=== PATIENT | male | born 1965 | race African-American/Black ===

== ENCOUNTER 2024-09-20 09:45 | Emergency (ER) | payer OTHER ==
[2024-09-20 10:03] VITALS: TEMP 99.3
--- NOTE | 2024-09-20 10:56 | XR ---
Chest, 2 view. CLINICAL INDICATION: Male, 59 years old with history of difficulty breathing COMPARISON: None TECHNIQUE: PA and lateral views the chest are obtained. FINDINGS: The lungs are clear and there is no consolidative or interstitial opacity. There is no pleural effusion or pneumothorax. The heart, pulmonary vasculature, mediastinum and tremaine appear normal. The osseous structures are intact. IMPRESSION: No significant abnormality seen. No acute cardiopulmonary disease. [facility], , 09/20/2024 10:54 AM
[2024-09-20 10:57] VITALS: BP 143/81
[2024-09-20 11:14] LABS: Basophils # (A) 0.03 10*3/uL (0.00-0.10); Basophils % (A) 0.3 %; Eosinophils # (A) 0.05 10*3/uL (0.04-0.35); Eosinophils % (A) 0.4 %; HCT 33.6 % (39.6-50.0); HGB 10.6 g/dL (13.0-17.0); Lymphocytes # (A) 1.87 10*3/uL (0.90-5.00); Lymphocytes % (A) 16.6 %; MCH 27.1 pg (27.0-32.0); MCHC 31.5 g/dL (32.0-37.0); MCV 85.9 fL (80.0-97.0); Mean Platelet Volume 9.2 fL (9.5-12.2); Monocytes % (A) 10.7 %; Neutrophils # (A) 8.06 10*3/uL (1.80-7.70); Neutrophils % (A) 71.7 %; Platelet Count 249 10*3/uL (140-440); RBC 3.91 10*6/uL (4.40-5.60); RDW 16.7 % (11.5-14.5); WBC 11.24 10*3/uL (4.50-10.00)
[2024-09-20 11:15] VITALS: RESP 24
[2024-09-20] MEDS: methylPREDNISolone SOD SUCCI 125 MG/2 ML VIAL IV STA (11:15)
[2024-09-20 11:29] LABS: Partial Thromboplastin Time 26.6 sec (22.0-30.0); Prothrombin Time 11.1 sec (10.0-12.5)
[2024-09-20 11:31] LABS: ALT 14 U/L (4-49); AST 18 U/L (17-59); African American GFR (CKD) >90 (>60 ml/min/1.73 sqM); Albumin 3.1 g/dL (3.5-5.0); Alkaline Phosphatase 88 U/L (38-126); Anion Gap 8 mmol/L; Blood Urea Nitrogen 15 mg/dL (9-20); Calcium 8.3 mg/dL (8.4-10.2); Carbon Dioxide 24 mmol/L (22-30); Chloride 107 mmol/L (98-107); Glucose 87 mg/dL (74-99); Magnesium 1.7 mg/dL (1.6-2.3); Non-African American GFR(CKD) 90 (>60 ml/min/1.73 sqM); Potassium 3.6 mmol/L (3.5-5.1); Sodium 139 mmol/L (137-145); Total Bilirubin 0.6 mg/dL (0.2-1.3)
[2024-09-20 11:47] LABS: Influenza A Not Detected (Not Detectd); Influenza B Not Detected (Not Detectd); RSV Not Detected (Not Detectd)
[2024-09-20] MEDS: IPRATROPIUM-ALBUTEROL 3 ML NEB INHALATION STA (12:00)
--- NOTE | 2024-09-20 12:00 | ED ---
General Adult HPI - General Chief complaint: Shortness of Breath Stated complaint: SOB Time Seen by Provider: 09/20/24 10:01 Source: patient, EMS, RN notes reviewed Mode of arrival: EMS Limitations: no limitations - History of Present Illness Initial comments: 59-year-old male presents emergency department complaint of cough and congestion. Patient states that he does have a history of COPD states he had some wheezing received updraft at [facility]. Patient was brought in via EMS. Denies any fever states he has productive cough with sputum. Patient denies any chest pain nausea vomit diarrhea constipation. He states that he usually has issues after he smokes crack. He states that he is at [facility] currently. - Related Data Previous Rx's Medication Instructions Recorded Amoxic-Pot Clav 875-125Mg 1 tab PO Q12HR #20 tab 09/20/24 [Augmentin 875-125] predniSONE 50 mg PO DAILY #5 tab 09/20/24 Allergies Allergy/AdvReac Type Severity Reaction Status Date / Time lisinopril Allergy Swelling Verified 09/20/24 10:03 Review of Systems ROS Statement: Those systems with pertinent positive or pertinent negative responses have been documented in the HPI. ROS Other: All systems not noted in ROS Statement are negative. Past Medical History Past Medical History: COPD, Hypertension Additional Past Medical History / Comment(s): Intubation in the past with trach in 2016 History of Any Multi-Drug Resistant Organisms: None Reported Additional Past Surgical History / Comment(s): Peg tube history-removed, trach- removed Past Psychological History: No Psychological Hx Reported Smoking Status: Former smoker Past Alcohol Use History: Occasional Past Drug Use History: Cocaine, Marijuana General Exam Limitations: no limitations General appearance: alert, in no apparent distress Head exam: Present: atraumatic, normocephalic, normal inspection Eye exam: Present: normal appearance, PERRL, EOMI. Absent: scleral icterus, conjunctival injection, periorbital swelling ENT exam: Present: normal exam, normal oropharynx, mucous membranes moist Neck exam: Present: normal inspection, full ROM. Absent: tenderness, meningismus, lymphadenopathy Respiratory exam: Present: wheezes. Absent: normal lung sounds bilaterally, respiratory distress, rales, rhonchi, stridor Cardiovascular Exam: Present: regular rate, normal rhythm, normal heart sounds. Absent: systolic murmur, diastolic murmur, rubs, gallop, clicks GI/Abdominal exam: Present: soft, normal bowel sounds. Absent: distended, tenderness, guarding, rebound, rigid Course Vital Signs 09/20/24 09/20/24 09/20/24 09:58 10:54 10:57 Temperature 99.3 F Pulse Rate 70 79 Respiratory 24 26 H 24 Rate Blood Pressure 136/74 143/81 O2 Sat by Pulse 95 98 Oximetry 09/20/24 11:02 Temperature Pulse Rate 78 Respiratory 24 Rate Blood Pressure O2 Sat by Pulse 95 Oximetry EKG Findings - EKG Comments: EKG Findings:: EKG performed at 10: 13 sinus rhythm with a rate of 77 AL 175 QRS 94 QT/QTc 404/436 - EKG Results: EKG: interpreted by MAHESH Medical Decision Making - Medical Decision Making Was pt. sent in by a medical professional or institution (, PA, TRACK GRINDER, urgent care, hospital, or intermediate...) When possible be specific @ -[facility] Did you speak to anyone other than the patient for history (EMS, parent, family, police, friend...)? What history was obtained from this source @ -No Did you review nursing and triage notes (agree or disagree)? Why? @ -I reviewed and agree with nursing and triage notes Were old charts reviewed (outside hosp., previous admission, EMS record, old EKG, old radiological studies, urgent care reports/EKG's, intermediate records)? Report findings @ -No old charts were reviewed Differential Diagnosis (chest pain, altered mental status, abdominal pain women, abdominal pain men, vaginal bleeding, weakness, fever, dyspnea, syncope, headache, dizziness, GI bleed, back pain, seizure, CVA, palpatations, mental health, musculoskeletal)? @ -Differential Dyspnea: Coronary syndrome, arrhythmia, tamponade, asthma, COPD, pulmonary embolism, pneumonia, pneumothorax, pulmonary effusion, anaphylaxis, diabetic ketoacidosis, flailed chest, pulmonary contusion, diaphragmatic rupture, anemia, neuromuscular, this is not meant to be an all-inclusive list. EKG interpreted by me (3pts min.). @ -As above X-rays interpreted by me (1pt min.). @ -Chest x-ray shows COPD changes no acute infiltrate CT interpreted by me (1pt min.). @ -None done U/S interpreted by me (1pt. min.). @ -None done What testing was considered but not performed or refused? (CT, X-rays, U/S, labs)? Why? @ -None What meds were considered but not given or refused? Why? @ -None Did you discuss the management of the patient with other professionals (professionals i.e. , PA, TRACK GRINDER, lab, RT, psych nurse, social staff worker, rn disease management, teacher, security officer, case reviewer)? Give summary @ -No Was smoking cessation discussed for >3mins.? @ -No Was critical care preformed (if so, how long)? @ -No Were there social determinants of health that impacted care today? How? (Homelessness, low income, unemployed, alcoholism, drug addiction, transportation, low edu. Level, literacy, decrease access to med. care, penitentiary, rehab)? @ -No Was there de-escalation of care discussed even if they declined (Discuss DNR or withdrawal of care, Hospice)? DNR status @ -No What co-morbidities impacted this encounter? (DM, HTN, Smoking, COPD, CAD, Cancer, CVA, ARF, Chemo, Hep., AIDS, mental health diagnosis, sleep apnea, morbid obesity)? @ -COPD, drug abuse Was patient admitted / discharged? Hospital course, mention meds given and rout e, prescriptions, significant lab abnormalities, going to OR and other pertinent info. @Discharge patient presented for cough congestion patient does have mild COPD exacerbation he is not hypoxic and is no distress. Patient given Solu-Medrol and DuoNeb treatment will be discharged on antibiotics steroids continuation of medication return for as discussed. Undiagnosed new problem with uncertain prognosis? @ -No Drug Therapy requiring intensive monitoring for toxicity (Heparin, Nitro, Insulin, Cardizem)? @ -No Were any procedures done? @ -No Diagnosis/symptom? @ -Mild COPD exacerbation, acute tracheobronchitis Acute, or Chronic, or Acute on Chronic? @ -Acute Uncomplicated (without systemic symptoms) or Complicated (systemic symptoms)? @ -Complicated Side effects of treatment? @ -No Exacerbation, Progression, or Severe Exacerbation? @ -No Poses a threat to life or bodily function? How? (Chest pain, USA, CT, pneumonia, PE, COPD, DKA, ARF, appy, cholecystitis, CVA, Diverticulitis, Homicidal, Suicidal, threat to staff... and all critical care pts) @ -Yes COPD risk to pulmonary function - Lab Data Result diagrams: 09/20/24 11:04 09/20/24 11:04 Lab Results 09/20/24 09/20/24 09/20/24 Range/Units 11:04 11:04 11:04 WBC 11.24 H (4.50-10.00) 10*3/uL RBC 3.91 L (4.40-5.60) 10*6/uL Hgb 10.6 L (13.0-17.0) g/dL Hct 33.6 L (39.6-50.0) % MCV 85.9 (80.0-97.0) fL MCH 27.1 (27.0-32.0) pg MCHC 31.5 L (32.0-37.0) g/dL Plt Count 249 (140-440) 10*3/uL MPV 9.2 L (9.5-12.2) fL Immature Gran % (Auto) 0.3 % Neutrophils % 71.7 % Lymphocytes % 16.6 % Monocytes % 10.7 % Eosinophils % 0.4 % Basophils % 0.3 % Immature Gran # 0.03 (0.00-0.04) 10*3/uL Neutrophils # 8.06 H (1.80-7.70) 10*3/uL Lymphocytes # 1.87 (0.90-5.00) 10*3/uL Monocytes # 1.20 H (0.20-1.00) 10*3/uL Eosinophils # 0.05 (0.04-0.35) 10*3/uL Basophils # 0.03 (0.00-0.10) 10*3/uL PT 11.1 (10.0-12.5) sec INR 1.0 (<1.2) APTT 26.6 (22.0-30.0) sec Sodium 139 (137-145) mmol/L Potassium 3.6 (3.5-5.1) mmol/L Chloride 107 (98-107) mmol/L Carbon Dioxide 24 (22-30) mmol/L Anion Gap 8 mmol/L BUN 15 (9-20) mg/dL Creatinine 0.92 (0.66-1.25) mg/dL Est GFR (CKD-EPI)AfAm >90 (>60 ml/min/1.73 sqM) Est GFR (CKD-EPI)NonAf 90 (>60 ml/min/1.73 sqM) Glucose 87 (74-99) mg/dL Plasma Lactic Acid Brandon (0.7-2.0) mmol/L Calcium 8.3 L (8.4-10.2) mg/dL Magnesium 1.7 (1.6-2.3) mg/dL Total Bilirubin 0.6 (0.2-1.3) mg/dL AST 18 (17-59) U/L ALT 14 (4-49) U/L Alkaline Phosphatase 88 (38-126) U/L Troponin I (0.000-0.034) ng/mL Total Protein 6.0 L (6.3-8.2) g/dL Albumin 3.1 L (3.5-5.0) g/dL Influenza Type A (PCR) (Not Detectd) Influenza Type B (PCR) (Not Detectd) RSV (PCR) (Not Detectd) SARS-CoV-2 (PCR) (Not Detectd) 09/20/24 09/20/24 09/20/24 Range/Units 11:04 11:04 11:04 WBC (4.50-10.00) 10*3/uL RBC (4.40-5.60) 10*6/uL Hgb (13.0-17.0) g/dL Hct (39.6-50.0) % MCV (80.0-97.0) fL MCH (27.0-32.0) pg MCHC (32.0-37.0) g/dL Plt Count (140-440) 10*3/uL MPV (9.5-12.2) fL Immature Gran % (Auto) % Neutrophils % % Lymphocytes % % Monocytes % % Eosinophils % % Basophils % % Immature Gran # (0.00-0.04) 10*3/uL Neutrophils # (1.80-7.70) 10*3/uL Lymphocytes # (0.90-5.00) 10*3/uL Monocytes # (0.20-1.00) 10*3/uL Eosinophils # (0.04-0.35) 10*3/uL Basophils # (0.00-0.10) 10*3/uL PT (10.0-12.5) sec INR (<1.2) APTT (22.0-30.0) sec Sodium (137-145) mmol/L Potassium (3.5-5.1) mmol/L Chloride (98-107) mmol/L Carbon Dioxide (22-30) mmol/L Anion Gap mmol/L BUN (9-20) mg/dL Creatinine (0.66-1.25) mg/dL Est GFR (CKD-EPI)AfAm (>60 ml/min/1.73 sqM) Est GFR (CKD-EPI)NonAf (>60 ml/min/1.73 sqM) Glucose (74-99) mg/dL Plasma Lactic Acid Brandon 1.1 (0.7-2.0) mmol/L Calcium (8.4-10.2) mg/dL Magnesium (1.6-2.3) mg/dL Total Bilirubin (0.2-1.3) mg/dL AST (17-59) U/L ALT (4-49) U/L Alkaline Phosphatase (38-126) U/L Troponin I 0.014 (0.000-0.034) ng/mL Total Protein (6.3-8.2) g/dL Albumin (3.5-5.0) g/dL Influenza Type A (PCR) Not Detected (Not Detectd) Influenza Type B (PCR) Not Detected (Not Detectd) RSV (PCR) Not Detected (Not Detectd) SARS-CoV-2 (PCR) Not Detected (Not Detectd) Disposition Clinical Impression: COPD exacerbation, Acute tracheobronchitis Disposition: HOME SELF-CARE Condition: Stable Instructions (If sedation given, give patient instructions): COPD (Chronic Obstructive Pulmonary Disease) (ED) Additional Instructions: Please return to the Emergency Department if symptoms worsen or any other concerns. Prescriptions: Amoxic-Pot Clav 875-125Mg [Augmentin 875-125] 1 tab PO Q12HR #20 tab predniSONE 50 mg PO DAILY #5 tab Is patient prescribed a controlled substance at d/c from ED?: No Referrals: Nonstaff,Physician [Primary Care Provider] - 1-2 days Time of Disposition: 11:59
[2024-09-20 12:20] VITALS: PULSE 88
== END 2024-09-20 13:32 | disposition home or self-care (01) ==
LOC: EC 09:45
DX: J44.1 Chronic obstructive pulmonary disease with (acute) exacerbation (principal); J20.9 Acute bronchitis, unspecified; F19.10 Other psychoactive substance abuse, uncomplicated; Z88.8 Allergy status to other drugs, medicaments and biological substances; Z87.891 Personal history of nicotine dependence
CPT/HCPCS: 36415; 94640; 93005; 80053; 83605; 83735; 84484; 85025; 85610; 85730; 87636; 71046; 99285; 96374; J2919

== ENCOUNTER 2024-09-22 08:11 | Emergency (ER) | payer OTHER ==
[2024-09-22 08:45] VITALS: TEMP 98
--- NOTE | 2024-09-22 08:52 | ED ---
SOB HPI - General Chief Complaint: Shortness of Breath Stated Complaint: COPD Time Seen by Provider: 09/22/24 08:51 Source: patient, EMS, RN notes reviewed Mode of arrival: EMS Limitations: no limitations - History of Present Illness Initial Comments: 59-year-old male with a past medical history significant of COPD presenting to the ER via EMS for evaluation of shortness of breath. Patient reports he is currently residing at [facility] for cocaine abuse. Patient states since 09 13 24 he has been having increasing dyspnea upon exertion. Patient was seen and evaluated here 2 days prior and received IV Solu-Medrol along with nebulized DuoNeb. Patient was ultimately discharged on prednisone and Augmentin. He reports he has been taking these as prescribed. Patient states for the past 2 days while ambulating he has noticed increased shortness of breath. While taking vital signs at [facility] he notes his oxygen saturations dropping to 90% on room air. He denies home oxygen use. Patient denies peripheral edema, orthopnea, or chest pain. Patient has been using prescribed inhalers and nebulizers without improvement of symptoms. He believes his symptoms have increased due to cigarette smoke at [facility]. History of intubation with trach 2016. He denies any fevers, chills, nausea, vomiting, abdominal pain, change in bowel movements, urinary complaints. - Related Data Home Medications Medication Instructions Recorded Confirmed Albuterol Inhaler [Ventolin Hfa 1 puff INHALATION RT-QID PRN 09/26/24 09/26/24 Inhaler] Albuterol Nebulized [Ventolin 2.5 mg INHALATION RT-Q4H PRN 09/26/24 09/26/24 Nebulized] Atorvastatin [Lipitor] 40 mg PO HS 09/26/24 09/26/24 Budesonide/Formoterol Fumarate 2 puff INHALATION RT-BID 09/26/24 09/26/24 [Symbicort 160-4.5 Mcg Inhaler] Cetirizine HCl [Zyrtec] 10 mg PO DAILY 09/26/24 09/26/24 FLUoxetine HCL [PROzac] 20 mg PO DAILY 09/26/24 09/26/24 Ferrous Sulfate [Feosol] 325 mg PO DAILY 09/26/24 09/26/24 Metoprolol Succinate (ER) [Toprol 25 mg PO DAILY 09/26/24 09/26/24 Xl] Montelukast [Singulair] 10 mg PO HS 09/26/24 09/26/24 Nystatin 100,000 Unit/ml Susp 5 ml PO QID 09/26/24 09/26/24 [Mycostatin Oral Susp] Potassium Chloride [Klor-Con M20] 20 meq PO DAILY 09/26/24 09/26/24 Tiotropium 2.5 Mcg/Puff [Spiriva 2 puff INHALATION RT-DAILY 09/26/24 09/26/24 Respimat 2.5 Mcg] Topiramate [Topamax] 25 mg PO BID 09/26/24 09/26/24 amLODIPine [Norvasc] 10 mg PO DAILY 09/26/24 09/26/24 Previous Rx's Medication Instructions Recorded Amoxic-Pot Clav 875-125Mg 1 tab PO Q12HR #20 tab 09/20/24 [Augmentin 875-125] Allergies Allergy/AdvReac Type Severity Reaction Status Date / Time lisinopril Allergy Swelling Verified 09/26/24 09:33 Review of Systems ROS Statement: Those systems with pertinent positive or pertinent negative responses have been documented in the HPI. ROS Other: All systems not noted in ROS Statement are negative. Past Medical History Past Medical History: COPD, Hypertension Additional Past Medical History / Comment(s): Intubation in the past with trach in 2016 History of Any Multi-Drug Resistant Organisms: None Reported Additional Past Surgical History / Comment(s): Peg tube history-removed, trach- removed Past Psychological History: No Psychological Hx Reported Smoking Status: Former smoker Past Alcohol Use History: Occasional Past Drug Use History: Cocaine, Marijuana General Exam - General Exam Comments Initial Comments: Visual Physical Exam Vital signs reviewed General: Well-appearing, nontoxic, no acute distress. Head: Normocephalic, atraumatic Eyes: PERRLA, EOMI ENT: Airway patent Chest: Nonlabored breathing Skin: No visual rash, normal skin tone Neuro: Alert and oriented 3 Musculoskeletal: No gross abnormalities Limitations: no limitations General appearance: alert, in no apparent distress ENT exam: Present: normal exam, normal oropharynx, mucous membranes moist Respiratory exam: Present: wheezes (Expiratory throughout all lung bridges) Cardiovascular Exam: Present: regular rate, normal rhythm, normal heart sounds. Absent: systolic murmur, diastolic murmur, rubs, gallop, clicks Extremities exam: Present: normal inspection, full ROM, normal capillary refill. Absent: tenderness, pedal edema, joint swelling, calf tenderness Neurological exam: Present: alert, oriented X3, CN II-XII intact Skin exam: Present: warm, dry, intact, normal color. Absent: rash Course Vital Signs 09/22/24 09/22/24 09/22/24 08:42 11:40 11:45 Temperature 98.0 F Pulse Rate 60 67 Respiratory 22 22 28 H Rate Blood Pressure 121/72 138/86 O2 Sat by Pulse 97 96 Oximetry 09/22/24 09/22/24 09/22/24 11:47 12:00 12:22 Temperature Pulse Rate 63 56 L 61 Respiratory 17 Rate Blood Pressure 131/76 O2 Sat by Pulse 97 100 Oximetry 09/22/24 09/22/24 12:37 14:29 Temperature Pulse Rate 68 76 Respiratory 17 Rate Blood Pressure 130/77 O2 Sat by Pulse 95 Oximetry Medical Decision Making - Medical Decision Making I performed the quick note portion of this chart. Electronically signed by Libby Hernandez PA-C Was pt. sent in by a medical professional or institution (NIMA Cavazos, RULING MACHINE SET UP OPERATOR, urgent care, hospital, or [place] health care facility...) When possible be specific @ -Patient sent from [facility] for evaluation of shortness of breath Did you speak to anyone other than the patient for history (EMS, parent, family, police, friend...)? What history was obtained from this source @ -No Did you review nursing and triage notes (agree or disagree)? Why? @ -I reviewed and agree with nursing and triage notes Were old charts reviewed (outside hosp., previous admission, EMS record, old EKG, old radiological studies, urgent care reports/EKG's, [place] health care facility records)? Report findings @ -ER visit from 09-20-2024 reviewed. Patient seen for shortness of breath. Patient had negative workup. Patient received IV Solu-Medrol, and DuoNeb nebulizers. Patient ultimately discharged back to [facility] in stable condition prescribed prednisone and Augmentin. Differential Diagnosis (chest pain, altered mental status, abdominal pain women, abdominal pain men, vaginal bleeding, weakness, fever, dyspnea, syncope, headache, dizziness, GI bleed, back pain, seizure, CVA, palpatations, mental health, musculoskeletal)? @ -Differential Dyspnea:Coronary syndrome, arrhythmia, tamponade, asthma, COPD, pulmonary embolism, pneumonia, pneumothorax, pulmonary effusion, anaphylaxis, diabetic ketoacidosis, flailed chest, pulmonary contusion, diaphragmatic rupture, anemia, neuromuscular, this is not meant to be an all-inclusive list. EKG interpreted by me (3pts min.). @ -As above X-rays interpreted by me (1pt min.). @ -CXR interpreted by me negative for focal consolidation or CT interpreted by me (1pt min.). @ -None done U/S interpreted by me (1pt. min.). @ -None done What testing was considered but not performed or refused? (CT, X-rays, U/S, labs)? Why? @ -None What meds were considered but not given or refused? Why? @ -None Did you discuss the management of the patient with other professionals (professionals i.e. , PA, RULING MACHINE SET UP OPERATOR, lab, RT, psych nurse, social sciences instructor, net technical architect, teacher, landcare officer, bottle caser)? Give summary @ -No Was smoking cessation discussed for >3mins.? @ -No Was critical care preformed (if so, how long)? @ -No Were there social determinants of health that impacted care today? How? (Homelessness, low income, unemployed, alcoholism, drug addiction, transportation, low edu. Level, literacy, decrease access to med. care, intermediate, rehab)? @ -Patient currently residing at [facility] for cocaine abuse Was there de-escalation of care discussed even if they declined (Discuss DNR or withdrawal of care, Hospice)? DNR status @ -No What co-morbidities impacted this encounter? (DM, HTN, Smoking, COPD, CAD, Cancer, CVA, ARF, Chemo, Hep., AIDS, mental health diagnosis, sleep apnea, morbid obesity)? @ -COPD, cocaine abuse Was patient admitted / discharged? Hospital course, mention meds given and route, prescriptions, significant lab abnormalities, going to OR and other pertinent info. @ -Discharge. 59-year-old male presented the ER for evaluation of shortness of breath. Patient reports a history of COPD. Workup initiated in triage. Upon arrival vital signs stable, oxygen saturation 97% on room air. Upon my evaluation, patient resting comfortably on stretcher no signs of acute distress. There is expiratory wheezing noted throughout all lung bridges. X-rays obtained remarkable for leukocytosis of 11.9 with a left shift likely reactive from steroid use. Hemoglobin 10.7. CMP unimpressive. Troponin undetectable, <0.012. EKG showing a sinus rhythm with occasional PVC. No acute evidence of infarct or ischemia. Chest x-ray negative for acute process. Patient provided with DuoNeb nebulizer treatments, with improvement of wheezing. Vital signs remained stable throughout emergency department stay. Upon reevaluation, p atient sleeping on stretcher no signs of acute distress. Patient educated on today's findings. Advised continue use of prednisone and Augmentin. Advised patient to follow-up closely with PCP. Strict return parameters discussed. Patient discharged in stable condition back to [facility]. Patient verbally expressed understanding agree with care plan. Case discussed with ED attending, Dr. Vásquez. Undiagnosed new problem with uncertain prognosis? @ -No Drug Therapy requiring intensive monitoring for toxicity (Heparin, Nitro, Insulin, Cardizem)? @ -No Were any procedures done? @ -No Diagnosis/symptom? @ -Tracheobronchitis/COPD exacerbation Acute, or Chronic, or Acute on Chronic? @ -Acute Uncomplicated (without systemic symptoms) or Complicated (systemic symptoms)? @ -Uncomplicated Side effects of treatment? @ -No Exacerbation, Progression, or Severe Exacerbation? @ -No Poses a threat to life or bodily function? How? (Chest pain, USA, [place], pneumonia, PE, COPD, DKA, ARF, appy, cholecystitis, CVA, Diverticulitis, Homicidal, Suicidal, threat to staff... and all critical care pts) @ -No - Lab Data Result diagrams: 09/22/24 11:44 09/22/24 11:44 Lab Results 09/22/24 09/22/24 09/22/24 Range/Units 11:44 11:44 12:34 WBC 11.91 H (4.50-10.00) 10*3/uL RBC 3.97 L (4.40-5.60) 10*6/uL Hgb 10.7 L (13.0-17.0) g/dL Hct 34.8 L (39.6-50.0) % MCV 87.7 (80.0-97.0) fL MCH 27.0 (27.0-32.0) pg MCHC 30.7 L (32.0-37.0) g/dL Plt Count 276 (140-440) 10*3/uL MPV 9.1 L (9.5-12.2) fL Immature Gran % (Auto) 0.5 % Neutrophils % 92.3 % Lymphocytes % 4.9 % Monocytes % 2.2 % Eosinophils % 0.0 % Basophils % 0.1 % Immature Gran # 0.06 H (0.00-0.04) 10*3/uL Neutrophils # 11.00 H (1.80-7.70) 10*3/uL Lymphocytes # 0.58 L (0.90-5.00) 10*3/uL Monocytes # 0.26 (0.20-1.00) 10*3/uL Eosinophils # 0.00 L (0.04-0.35) 10*3/uL Basophils # 0.01 (0.00-0.10) 10*3/uL PT 10.5 (10.0-12.5) sec INR 0.9 (<1.2) APTT 23.8 (22.0-30.0) sec Sodium 143 (137-145) mmol/L Potassium 4.2 (3.5-5.1) mmol/L Chloride 111 H (98-107) mmol/L Carbon Dioxide 25 (22-30) mmol/L Anion Gap 7 mmol/L BUN 21 H (9-20) mg/dL Creatinine 0.76 (0.66-1.25) mg/dL Est GFR (CKD-EPI)AfAm >90 (>60 ml/min/1.73 sqM) Est GFR (CKD-EPI)NonAf >90 (>60 ml/min/1.73 sqM) Glucose 145 H (74-99) mg/dL Calcium 9.0 (8.4-10.2) mg/dL Total Bilirubin 0.4 (0.2-1.3) mg/dL AST 22 (17-59) U/L ALT 20 (4-49) U/L Alkaline Phosphatase 105 (38-126) U/L Troponin I (0.000-0.034) ng/mL Total Protein 6.5 (6.3-8.2) g/dL Albumin 3.4 L (3.5-5.0) g/dL 06/24/25 Range/Units 12:34 WBC (4.50-10.00) 10*3/uL RBC (4.40-5.60) 10*6/uL Hgb (13.0-17.0) g/dL Hct (39.6-50.0) % MCV (80.0-97.0) fL MCH (27.0-32.0) pg MCHC (32.0-37.0) g/dL Plt Count (140-440) 10*3/uL MPV (9.5-12.2) fL Immature Gran % (Auto) % Neutrophils % % Lymphocytes % % Monocytes % % Eosinophils % % Basophils % % Immature Gran # (0.00-0.04) 10*3/uL Neutrophils # (1.80-7.70) 10*3/uL Lymphocytes # (0.90-5.00) 10*3/uL Monocytes # (0.20-1.00) 10*3/uL Eosinophils # (0.04-0.35) 10*3/uL Basophils # (0.00-0.10) 10*3/uL PT (10.0-12.5) sec INR (<1.2) APTT (22.0-30.0) sec Sodium (137-145) mmol/L Potassium (3.5-5.1) mmol/L Chloride (98-107) mmol/L Carbon Dioxide (22-30) mmol/L Anion Gap mmol/L BUN (9-20) mg/dL Creatinine (0.66-1.25) mg/dL Est GFR (CKD-EPI)AfAm (>60 ml/min/1.73 sqM) Est GFR (CKD-EPI)NonAf (>60 ml/min/1.73 sqM) Glucose (74-99) mg/dL Calcium (8.4-10.2) mg/dL Total Bilirubin (0.2-1.3) mg/dL AST (17-59) U/L ALT (4-49) U/L Alkaline Phosphatase (38-126) U/L Troponin I <0.012 (0.000-0.034) ng/mL Total Protein (6.3-8.2) g/dL Albumin (3.5-5.0) g/dL - EKG Data -: EKG Interpreted by Nm EKG Comments: EKG taken at 11: 36 showing a sinus rhythm with occasional PVCs. No ST segment elevations or depressions. No T wave inversions. Ventricular rate 66, AR interval 168, QRS duration 96, QT/QTc 428/441. - Radiology Data Radiology results: report reviewed, image reviewed Disposition Clinical Impression: COPD exacerbation Disposition: HOME SELF-CARE Condition: Stable Instructions (If sedation given, give patient instructions): COPD (Chronic Obstructive Pulmonary Disease) (ED) Additional Instructions: Continue prednisone and antibiotics as prescribed. Follow-up with PCP. Return to the ER for any new or worsening concerns. Is patient prescribed a controlled substance at d/c from ED?: No Referrals: Bneedict Medrano DO [Primary Care Provider] - 1-2 days Time of Disposition: 14:00
--- NOTE | 2024-09-22 09:31 | XR ---
EXAMINATION TYPE: XR chest 2V DATE OF EXAM: 09/22/2024 9:24 AM COMPARISON: 09/20/2024 CLINICAL INDICATION: Male, 59 years old with history of sob hx copd, TECHNIQUE: XR chest 2V view(s) obtained. FINDINGS: The heart size is normal. The pulmonary vasculature is normal. The lungs are clear. IMPRESSION: 1. No acute pulmonary process. [facility], , 09/22/2024 9:29 AM
[2024-09-22 12:05] LABS: Basophils # (A) 0.01 10*3/uL (0.00-0.10); Basophils % (A) 0.1 %; HCT 34.8 % (39.6-50.0); HGB 10.7 g/dL (13.0-17.0); Lymphocytes # (A) 0.58 10*3/uL (0.90-5.00); Lymphocytes % (A) 4.9 %; MCHC 30.7 g/dL (32.0-37.0); MCV 87.7 fL (80.0-97.0); Mean Platelet Volume 9.1 fL (9.5-12.2); Monocytes # (A) 0.26 10*3/uL (0.20-1.00); Monocytes % (A) 2.2 %; Neutrophils % (A) 92.3 %; Platelet Count 276 10*3/uL (140-440); RBC 3.97 10*6/uL (4.40-5.60); RDW 17.2 % (11.5-14.5); WBC 11.91 10*3/uL (4.50-10.00)
[2024-09-22] MEDS: IPRATROPIUM-ALBUTEROL 3 ML NEB INHALATION STA (12:19)
[2024-09-22 12:20] LABS: ALT 20 U/L (4-49); AST 22 U/L (17-59); African American GFR (CKD) >90 (>60 ml/min/1.73 sqM); Albumin 3.4 g/dL (3.5-5.0); Alkaline Phosphatase 105 U/L (38-126); Anion Gap 7 mmol/L; Blood Urea Nitrogen 21 mg/dL (9-20); Carbon Dioxide 25 mmol/L (22-30); Chloride 111 mmol/L (98-107); Glucose 145 mg/dL (74-99); Non-African American GFR(CKD) >90 (>60 ml/min/1.73 sqM); Potassium 4.2 mmol/L (3.5-5.1); Sodium 143 mmol/L (137-145); Total Bilirubin 0.4 mg/dL (0.2-1.3); Total Protein 6.5 g/dL (6.3-8.2)
[2024-09-22 12:38] VITALS: RESP 17
[2024-09-22 13:44] LABS: INR 0.9 (<1.2)
[2024-09-22 13:45] LABS: Partial Thromboplastin Time 23.8 sec (22.0-30.0); Prothrombin Time 10.5 sec (10.0-12.5)
[2024-09-22 14:30] VITALS: BP 130/77; PULSE 76
== END 2024-09-22 14:27 | disposition home or self-care (01) ==
LOC: EC 08:11
DX: J44.1 Chronic obstructive pulmonary disease with (acute) exacerbation (principal); F14.10 Cocaine abuse, uncomplicated; Z87.891 Personal history of nicotine dependence; Z88.8 Allergy status to other drugs, medicaments and biological substances
CPT/HCPCS: 36415; 71046; 80053; 84484; 85025; 85610; 85730; 93005; 94640; 99285

== ENCOUNTER 2024-09-26 07:55 | Observation (INO) | payer OTHER ==
[2024-09-26] MEDS: methylPREDNISolone SOD SUCCI 125 MG/2 ML VIAL IV STA (08:24)
--- NOTE | 2024-09-26 08:32 | ED ---
General Adult HPI - General Chief complaint: Shortness of Breath Stated complaint: BENI Time Seen by Provider: 09/26/24 08:04 Source: patient, EMS, RN notes reviewed, old records reviewed Mode of arrival: EMS Limitations: no limitations - History of Present Illness Initial comments: 1-year-old male history of COPD presents from [place] with productive cough, dyspnea. Patient was hypoxic requiring oxygen during transport. He has significant COPD and does follow with pulmonology on a regular basis. Patient denies fever. States the cough is productive of yellow sputum. No central chest pain. - Related Data Previous Rx's Medication Instructions Recorded Amoxic-Pot Clav 875-125Mg 1 tab PO Q12HR #20 tab 09/20/24 [Augmentin 875-125] predniSONE 50 mg PO DAILY #5 tab 09/20/24 Albuterol Inhaler [Ventolin Hfa 1 - 2 puff INHALATION Q6H PRN #1 09/22/24 Inhaler] each Allergies Allergy/AdvReac Type Severity Reaction Status Date / Time lisinopril Allergy Swelling Verified 09/26/24 09:33 Review of Systems ROS Statement: Those systems with pertinent positive or pertinent negative responses have been documented in the HPI. ROS Other: All systems not noted in ROS Statement are negative. Past Medical History Past Medical History: COPD, Hypertension Additional Past Medical History / Comment(s): Intubation in the past with trach in 2016 History of Any Multi-Drug Resistant Organisms: None Reported Additional Past Surgical History / Comment(s): Peg tube history-removed, trach- removed Past Psychological History: No Psychological Hx Reported Smoking Status: Former smoker Past Alcohol Use History: Occasional Past Drug Use History: Cocaine, Marijuana General Exam General appearance: alert, in no apparent distress Head exam: Present: atraumatic, normocephalic Eye exam: Present: normal appearance, PERRL, EOMI Respiratory exam: Present: respiratory distress, wheezes, rhonchi, decreased breath sounds Cardiovascular Exam: Present: regular rate, normal rhythm GI/Abdominal exam: Present: soft. Absent: distended, tenderness Extremities exam: Present: normal inspection, normal capillary refill Neurological exam: Present: alert, oriented X3, CN II-XII intact. Absent: motor sensory deficit Psychiatric exam: Present: normal affect, normal mood Skin exam: Present: warm, dry, intact. Absent: cyanosis, diaphoretic Course Vital Signs 09/26/24 09/26/24 07:58 09:14 Temperature 98.2 F Pulse Rate 82 70 Respiratory 20 Rate Blood Pressure 137/73 O2 Sat by Pulse 96 Oximetry Medical Decision Making - Medical Decision Making Was pt. sent in by a medical professional or institution (NIMA Cavazos, DIABETIC EDUCATOR, urgent care, hospital, or custodial...) When possible be specific @ -No Did you speak to anyone other than the patient for history (EMS, parent, family, police, friend...)? What history was obtained from this source @ -No Did you review nursing and triage notes (agree or disagree)? Why? @ -I reviewed and agree with nursing and triage notes Were old charts reviewed (outside hosp., previous admission, EMS record, old EKG, old radiological studies, urgent care reports/EKG's, custodial records)? Report findings @ -No old charts were reviewed Differential Dyspnea: Coronary syndrome, arrhythmia, tamponade, asthma, COPD, pulmonary embolism, pneumonia, pneumothorax, pulmonary effusion, anaphylaxis, diabetic ketoacidosis, flailed chest, pulmonary contusion, diaphragmatic rupture, anemia, neuromuscular, this is not meant to be an all-inclusive list. EKG interpreted by me (3pts min.). @ -Sinus rhythm rate of 77, [place] interval 166, QRS duration 89, QTc [address] segment elevation T wave inversion in the lateral precordium. X-rays interpreted by me (1pt min.). @ -[Chest x-ray negative for focal pneumonia or pneumothorax CT interpreted by me (1pt min.). @ -None done U/S interpreted by me (1pt. min.). @ -None done What testing was considered but not performed or refused? (CT, X-rays, U/S, labs)? Why? @ -None What meds were considered but not given or refused? Why? @ -None Did you discuss the management of the patient with other professionals (professionals i.e. NIMA Cavzaos, DIABETIC EDUCATOR, lab, RT, psych nurse, social media specialist, incendiary powder mixer, teacher, radio officer, insurance case manager)? Give summary @[facility], will admit Was smoking cessation discussed for >3mins.? @ -No Was critical care preformed (if so, how long)? @ -Yes, 35 minutes Were there social determinants of health that impacted care today? How? (Homelessness, low income, unemployed, alcoholism, drug addiction, transport ation, low edu. Level, literacy, decrease access to med. care, senior care, rehab)? @ -No Was there de-escalation of care discussed even if they declined (Discuss DNR or withdrawal of care, Hospice)? DNR status @ -No What co-morbidities impacted this encounter? (DM, HTN, Smoking, COPD, CAD, Cancer, CVA, ARF, Chemo, Hep., AIDS, mental health diagnosis, sleep apnea, morbid obesity)? @ -COPD. Was patient admitted / discharged? Hospital course, mention meds given and route, prescriptions, significant lab abnormalities, going to OR and other pertinent info. @ -59-year-old male presenting with cough and dyspnea. Patient hypoxic during transport requiring supplemental oxygen. He has history of COPD. Patient has wheezing and rhonchi in bilateral lung auscultation, mild respiratory distress. Chest x-ray is negative for consolidative pneumonia or pneumothorax. Patient is in a sinus rhythm with a rate of 77. Patient has stable vitals other than his need for supplemental oxygen. He has a mild leukocytosis, stable chronic anemia. Negative troponin negative BNP, normal electrolytes. This is the patient's third visit for COPD. Patient will be admitted for further treatment of COPD exacerbation. Undiagnosed new problem with uncertain prognosis? @ -No Drug Therapy requiring intensive monitoring for toxicity (Heparin, Nitro, Insulin, Cardizem)? @ -No Were any procedures done? @ -No Diagnosis/symptom? @ -COPD with hypoxia Acute, or Chronic, or Acute on Chronic? @ -Cute on chronic Uncomplicated (without systemic symptoms) or Complicated (systemic symptoms)? @Complicated Side effects of treatment? @ -No Exacerbation, Progression, or Severe Exacerbation? @ -No Poses a threat to life or bodily function? How? (Chest pain, [place], [place], pneumonia, PE, COPD, DKA, ARF, appy, cholecystitis, CVA, Diverticulitis, Homicidal, Suicidal, threat to staff... and all critical care pts) @ -Yes, respiratory failure - Lab Data Result diagrams: 09/26/24 08:25 09/26/24 08:25 Lab Results 09/26/24 09/26/24 09/26/24 Range/Units 08:25 08:25 08:25 WBC 12.95 H (4.50-10.00) 10*3/uL RBC 4.15 L (4.40-5.60) 10*6/uL Hgb 11.1 L (13.0-17.0) g/dL Hct 35.6 L (39.6-50.0) % MCV 85.8 (80.0-97.0) fL MCH 26.7 L (27.0-32.0) pg MCHC 31.2 L (32.0-37.0) g/dL Plt Count 324 (140-440) 10*3/uL MPV 8.9 L (9.5-12.2) fL Immature Gran % (Auto) 0.5 % Neutrophils % 76.3 % Lymphocytes % 9.7 % Monocytes % 13.1 % Eosinophils % 0.2 % Basophils % 0.2 % Immature Gran # 0.07 H (0.00-0.04) 10*3/uL Neutrophils # 9.90 H (1.80-7.70) 10*3/uL Lymphocytes # 1.25 (0.90-5.00) 10*3/uL Monocytes # 1.69 H (0.20-1.00) 10*3/uL Eosinophils # 0.02 L (0.04-0.35) 10*3/uL Basophils # 0.02 (0.00-0.10) 10*3/uL PT 10.3 (10.0-12.5) sec INR 0.9 (<1.2) APTT 21.8 L (22.0-30.0) sec Sodium 139 (137-145) mmol/L Potassium 4.0 (3.5-5.1) mmol/L Chloride 106 (98-107) mmol/L Carbon Dioxide 26 (22-30) mmol/L Anion Gap 7 mmol/L BUN 20 (9-20) mg/dL Creatinine 0.78 (0.66-1.25) mg/dL Est GFR (CKD-EPI)AfAm >90 (>60 ml/min/1.73 sqM) Est GFR (CKD-EPI)NonAf >90 (>60 ml/min/1.73 sqM) Glucose 97 (74-99) mg/dL Plasma Lactic Acid Brandon (0.7-2.0) mmol/L Calcium 8.5 (8.4-10.2) mg/dL Magnesium 1.9 (1.6-2.3) mg/dL Total Bilirubin 0.4 (0.2-1.3) mg/dL AST 26 (17-59) U/L ALT 19 (4-49) U/L Alkaline Phosphatase 86 (38-126) U/L Troponin I (0.000-0.034) ng/mL NT-Pro-B Natriuret Pep 178 pg/mL Total Protein 6.3 (6.3-8.2) g/dL Albumin 3.2 L (3.5-5.0) g/dL Influenza Type A (PCR) (Not Detectd) Influenza Type B (PCR) (Not Detectd) RSV (PCR) (Not Detectd) SARS-CoV-2 (PCR) (Not Detectd) 09/26/24 09/26/24 09/26/24 Range/Units 08:25 08:25 08:25 WBC (4.50-10.00) 10*3/uL RBC (4.40-5.60) 10*6/uL Hgb (13.0-17.0) g/dL Hct (39.6-50.0) % MCV (80.0-97.0) fL MCH (27.0-32.0) pg MCHC (32.0-37.0) g/dL Plt Count (140-440) 10*3/uL MPV (9.5-12.2) fL Immature Gran % (Auto) % Neutrophils % % Lymphocytes % % Monocytes % % Eosinophils % % Basophils % % Immature Gran # (0.00-0.04) 10*3/uL Neutrophils # (1.80-7.70) 10*3/uL Lymphocytes # (0.90-5.00) 10*3/uL Monocytes # (0.20-1.00) 10*3/uL Eosinophils # (0.04-0.35) 10*3/uL Basophils # (0.00-0.10) 10*3/uL PT (10.0-12.5) sec INR (<1.2) APTT (22.0-30.0) sec Sodium (137-145) mmol/L Potassium (3.5-5.1) mmol/L Chloride (98-107) mmol/L Carbon Dioxide (22-30) mmol/L Anion Gap mmol/L BUN (9-20) mg/dL Creatinine (0.66-1.25) mg/dL Est GFR (CKD-EPI)AfAm (>60 ml/min/1.73 sqM) Est GFR (CKD-EPI)NonAf (>60 ml/min/1.73 sqM) Glucose (74-99) mg/dL Plasma Lactic Acid Brandon 1.3 (0.7-2.0) mmol/L Calcium (8.4-10.2) mg/dL Magnesium (1.6-2.3) mg/dL Total Bilirubin (0.2-1.3) mg/dL AST (17-59) U/L ALT (4-49) U/L Alkaline Phosphatase (38-126) U/L Troponin I <0.012 (0.000-0.034) ng/mL NT-Pro-B Natriuret Pep pg/mL Total Protein (6.3-8.2) g/dL Albumin (3.5-5.0) g/dL Influenza Type A (PCR) Not Detected (Not Detectd) Influenza Type B (PCR) Not Detected (Not Detectd) RSV (PCR) Not Detected (Not Detectd) SARS-CoV-2 (PCR) Not Detected (Not Detectd) Critical Care Time Critical Care Time: Yes Total Critical Care Time: 35 Disposition Clinical Impression: COPD exacerbation Disposition: ADMITTED IP TO THIS HOSP Condition: Stable Is patient prescribed a controlled substance at d/c from ED?: No Referrals: Benedict Medrano DO [Primary Care Provider] - 1-2 days Time of Disposition: 09:42
[2024-09-26 08:33] LABS: Basophils # (A) 0.02 10*3/uL (0.00-0.10); Basophils % (A) 0.2 %; Eosinophils # (A) 0.02 10*3/uL (0.04-0.35); Eosinophils % (A) 0.2 %; HCT 35.6 % (39.6-50.0); HGB 11.1 g/dL (13.0-17.0); Lymphocytes # (A) 1.25 10*3/uL (0.90-5.00); Lymphocytes % (A) 9.7 %; MCH 26.7 pg (27.0-32.0); MCHC 31.2 g/dL (32.0-37.0); MCV 85.8 fL (80.0-97.0); Monocytes # (A) 1.69 10*3/uL (0.20-1.00); Monocytes % (A) 13.1 %; Neutrophils # (A) 9.90 10*3/uL (1.80-7.70); Neutrophils % (A) 76.3 %; Platelet Count 324 10*3/uL (140-440); RBC 4.15 10*6/uL (4.40-5.60); RDW 16.7 % (11.5-14.5); WBC 12.95 10*3/uL (4.50-10.00)
--- NOTE | 2024-09-26 08:45 | XR ---
EXAMINATION TYPE: XR chest 2V DATE OF EXAM: 09/26/2024 8:35 AM COMPARISON: Chest radiographs from 09/22/2024. CLINICAL INDICATION: Male, 59 years old with history of difficulty breathing; [facility] TECHNIQUE: XR chest 2V Frontal and lateral views of the chest. FINDINGS: Lungs/Pleura: There is no evidence of pleural effusion, focal consolidation, or pneumothorax. Pulmonary vascularity: Unremarkable. Heart/mediastinum: Cardiomediastinal silhouette is unremarkable. Musculoskeletal: No acute osseous pathology. Other findings: None IMPRESSION: No acute cardiopulmonary disease/process. [facility], , 09/26/2024 8:42 AM
[2024-09-26 08:50] LABS: INR 0.9 (<1.2); Prothrombin Time 10.3 sec (10.0-12.5)
[2024-09-26 08:52] LABS: ALT 19 U/L (4-49); African American GFR (CKD) >90 (>60 ml/min/1.73 sqM); Albumin 3.2 g/dL (3.5-5.0); Anion Gap 7 mmol/L; Blood Urea Nitrogen 20 mg/dL (9-20); Calcium 8.5 mg/dL (8.4-10.2); Carbon Dioxide 26 mmol/L (22-30); Chloride 106 mmol/L (98-107); Glucose 97 mg/dL (74-99); Non-African American GFR(CKD) >90 (>60 ml/min/1.73 sqM); Partial Thromboplastin Time 21.8 sec (22.0-30.0); Sodium 139 mmol/L (137-145); Total Protein 6.3 g/dL (6.3-8.2)
[2024-09-26 08:54] LABS: AST 26 U/L (17-59); Alkaline Phosphatase 86 U/L (38-126); Magnesium 1.9 mg/dL (1.6-2.3); Potassium 4.0 mmol/L (3.5-5.1)
[2024-09-26 09:00] LABS: NT-Pro-B-Type Natriuretic Pept 178 pg/mL
[2024-09-26 09:13] LABS: RSV Not Detected (Not Detectd)
[2024-09-26] MEDS: ALBUTEROL NEBULIZED 2.5 MG/3 ML INHALATION STA (09:14)
[2024-09-26] MEDS: IPRATROPIUM-ALBUTEROL 3 ML NEB INHALATION STA (09:14)
[2024-09-26] MEDS ORDERED: IPRATROPIUM-ALBUTEROL 3 ML NEB INHALATION PRN (09:39)
[2024-09-26] MEDS ORDERED: ACETAMINOPHEN TAB 325 MG TAB PO PRN (09:39)
[2024-09-26] MEDS ORDERED: NALOXONE 0.4 MG/ML 1 ML VIAL IVP PRN (09:39)
[2024-09-26] MEDS: AZITHROMYCIN 500 MG TAB PO SCH (09:54)
[2024-09-26] MEDS: IPRATROPIUM-ALBUTEROL 3 ML NEB INHALATION SCH (12:49)
[2024-09-26] MEDS: methylPREDNISolone SOD SUCCI 125 MG/2 ML VIAL IV SCH (13:40)
[2024-09-26] MEDS: amLODIPine 10 MG TAB PO SCH (13:40)
--- NOTE | 2024-09-26 14:21 | P.HPIM ---
History of Present Illness H&P Date: 09/26/24 History of present illness; patient 59-year-old gentleman with past medical history significant for COPD, cocaine abuse presented the ER for shortness of breath. Patient was sent in from [place] where he was following up for cocaine abuse, last use was 09/13. Patient said for the last couple of days he has been having shortness of breath. Shortness of breath was present on rest as well exertion. Patient also complaining of productive cough. There is no complaint of fever or chills. Patient denies any chest pain. Patient denies any palpitation. There is no complaint of orthopnea or PND. Denies any nausea, vomiting abdominal pain. Patient denies any complaint of dizziness. There is no complaint of headache. Because of the symptoms, patient came to the ER Initial lab work done in the ER showed creatinine 0.95, hemoglobin 9.1, platelet count 324, sodium 139, potassium 4, BUN 20, creatinine 0.78, glucose 97, creatinine 1.3, calcium 8.5, magnesium 1.9, bilirubin 0.4 troponin 0.012 Influenza A not detected Influenza B not detected RSV not detected COVID-19 not detected EKG done in the ER showed heart rate of77 , no ST segment elevation or depression seen, no T-wave inversions seen. Chest x-ray done in the ER showed no acute cardiopulmonary process Patient admitted to internal medicine service REVIEW OF SYSTEMS: CONSTITUTIONAL: No fever, no malaise, no fatigue. HEENT: No recent visual problems or hearing problems. Denied any sore throat. CARDIOVASCULAR: As mentioned above. PULMONARY: As mentioned above GASTROINTESTINAL: No diarrhea, no nausea, no vomiting, no abdominal pain. NEUROLOGICAL: No headaches, no weakness, no numbness. HEMATOLOGICAL: Denies any bleeding or petechiae. GENITOURINARY: Denies any burning micturition, frequency, or urgency. MUSCULOSKELETAL/RHEUMATOLOGICAL: Denies any joint pain, swelling, or any muscle pain. ENDOCRINE: Denies any polyuria or polydipsia. The rest of the 14-point review of systems is negative. PHYSICAL EXAMINATION: GENERAL: The patient is alert and oriented x3, not in any acute distress. Well developed, well nourished. HEENT: Pupils are round and equally reacting to light. EOMI. No scleral icterus. No conjunctival pallor. Normocephalic, atraumatic. No pharyngeal erythema. No thyromegaly. CARDIOVASCULAR: S1 and S2 present. No murmurs, rubs, or gallops. PULMONARY: Coarse breath sound bilaterally, expiratory wheeze audible bilaterally ABDOMEN: Soft, nontender, nondistended, normoactive bowel sounds. No palpable organomegaly. MUSCULOSKELETAL: No joint swelling or deformity. EXTREMITIES: No cyanosis, clubbing, or pedal edema. NEUROLOGICAL: Gross neurological examination did not reveal any focal deficits. SKIN: No rashes. Assessment and plan Acute hypoxic respiratory failure Acute COPD exacerbation Hypertension History of cocaine abuse Monitor vital signs Monitor CBC Monitor CMP Continue telemetry monitoring Ordered breathing treatment Ordered IV Solu-Medrol Ordered azithromycin Ordered Symbicort Resume home meds Consult pulmonary Labs and medication were reviewed.. Continue same treatment. Continue with symptomatic treatment. Resume home medication. Monitor labs and vitals. DVT and GI prophylaxis. Further recommendations as per clinical course of the patient Dictation was produced using [employer] dictation software. please excuse any grammatical, word or spelling errors. Past Medical History Past Medical History: COPD, Hypertension Additional Past Medical History / Comment(s): Intubation in the past with trach in 2016 History of Any Multi-Drug Resistant Organisms: None Reported Additional Past Surgical History / Comment(s): Peg tube history-removed, trach- removed Past Psychological History: No Psychological Hx Reported Smoking Status: Current some day smoker Past Alcohol Use History: Occasional Past Drug Use History: Cocaine Medications and Allergies Home Medications Medication Instructions Recorded Confirmed Type Amoxic-Pot Clav 875-125Mg 1 tab PO Q12HR #20 tab 09/20/24 09/26/24 Rx [Augmentin 875-125] Albuterol Inhaler [Ventolin Hfa 1 puff INHALATION RT-QID PRN 09/26/24 09/26/24 History Inhaler] Albuterol Nebulized [Ventolin 2.5 mg INHALATION RT-Q4H PRN 09/26/24 09/26/24 History Nebulized] Atorvastatin [Lipitor] 40 mg PO HS 09/26/24 09/26/24 History Budesonide/Formoterol Fumarate 2 puff INHALATION RT-BID 09/26/24 09/26/24 History [Symbicort 160-4.5 Mcg Inhaler] Cetirizine HCl [Zyrtec] 10 mg PO DAILY 09/26/24 09/26/24 History FLUoxetine HCL [PROzac] 20 mg PO DAILY 09/26/24 09/26/24 History Ferrous Sulfate [Feosol] 325 mg PO DAILY 09/26/24 09/26/24 History Metoprolol Succinate (ER) [Toprol 25 mg PO DAILY 09/26/24 09/26/24 History Xl] Montelukast [Singulair] 10 mg PO HS 09/26/24 09/26/24 History Nystatin 100,000 Unit/ml Susp 5 ml PO QID 09/26/24 09/26/24 History [Mycostatin Oral Susp] Potassium Chloride [Klor-Con M20] 20 meq PO DAILY 09/26/24 09/26/24 History Tiotropium 2.5 Mcg/Puff [Spiriva 2 puff INHALATION RT-DAILY 09/26/24 09/26/24 History Respimat 2.5 Mcg] Topiramate [Topamax] 25 mg PO BID 09/26/24 09/26/24 History amLODIPine [Norvasc] 10 mg PO DAILY 09/26/24 09/26/24 History Allergies Allergy/AdvReac Type Severity Reaction Status Date / Time lisinopril Allergy Swelling Verified 09/26/24 09:33 Physical Exam Vitals: Vital Signs Temp Pulse Pulse Resp BP BP Pulse Ox 09/26/24 10:36 99.1 F 71 17 113/66 96 09/26/24 10:15 82 18 143/78 97 09/26/24 09:35 78 09/26/24 09:25 72 09/26/24 09:24 72 09/26/24 09:14 70 09/26/24 09:00 71 20 131/84 97 09/26/24 07:58 98.2 F 82 20 137/73 96 Intake and Output 09/25/24 09/26/24 09/26/24 22:59 06:59 14:59 Other: Weight 122.47 kg Results CBC & Chem 7: 09/26/24 08:25 09/26/24 08:25 Labs: Abnormal Lab Results - Last 24 Hours (Table) 09/26/24 09/26/24 09/26/24 Range/Units 08:25 08:25 08:25 WBC 12.95 H (4.50-10.00) 10*3/uL RBC 4.15 L (4.40-5.60) 10*6/uL Hgb 11.1 L (13.0-17.0) g/dL Hct 35.6 L (39.6-50.0) % MCH 26.7 L (27.0-32.0) pg MCHC 31.2 L (32.0-37.0) g/dL MPV 8.9 L (9.5-12.2) fL Immature Gran # 0.07 H (0.00-0.04) 10*3/uL Neutrophils # 9.90 H (1.80-7.70) 10*3/uL Monocytes # 1.69 H (0.20-1.00) 10*3/uL Eosinophils # 0.02 L (0.04-0.35) 10*3/uL APTT 21.8 L (22.0-30.0) sec Albumin 3.2 L (3.5-5.0) g/dL Thrombosis Risk Factor Assmnt - Choose All That Apply Any of the Below Risk Factors Present?: Yes Each Factor Represents 1 point: Abnormal pulmonary function (COPD), Obesity (BMI >25), Serious lung disease incl. pneumonia (< 1month), Swollen legs (current) Each Risk Factor Represents 2 Points: Age 61-74 years Each Risk Factor Represents 3 Points: Family history of DVT/PE Thrombosis Risk Factor Assessment Total Risk Factor Score: 9 Thrombosis Risk Factor Assessment Level: High Risk
[2024-09-26] MEDS: SYMBICORT 160-4.5 MCG INHALER INHALATION SCH (20:20)
[2024-09-26] MEDS: MONTELUKAST 10 MG TAB PO SCH (20:31)
[2024-09-26] MEDS: ATORVASTATIN 40 MG TAB PO SCH (20:32)
[2024-09-26] MEDS: TOPIRAMATE 25 MG TAB PO SCH (20:33)
[2024-09-27] MEDS: POTASSIUM CHLORIDE ER 20 MEQ TAB.ER PO SCH (08:56)
[2024-09-27] MEDS: METOPROLOL SUCCINATE (ER) 25 MG TAB.ER.24H PO SCH (08:56)
[2024-09-27] MEDS: FERROUS SULFATE 325 MG TAB PO SCH (08:56)
[2024-09-27] MEDS: LORATADINE 10 MG TAB PO SCH (08:56)
[2024-09-27 10:03] LABS: Basophils # (A) 0.01 X 10*3/uL (0.00-0.10); Basophils % (A) 0.1 %; Eosinophils # (A) 0 X 10*3/uL (0.04-0.35); Eosinophils % (A) 0 %; HCT 35.3 % (39.6-50.0); HGB 10.5 g/dL (13.0-17.0); Immature Grans, Automated 1.00 %; Lymphocytes # (A) 1.18 X 10*3/uL (0.90-5.00); Lymphocytes % (A) 9.3 %; MCH 25.7 pg (27.0-32.0); MCHC 29.7 g/dL (32.0-37.0); MCV 86.5 FL (80.0-97.0); Monocytes # (A) 0.35 X 10*3/uL (0.20-1.00); Monocytes % (A) 2.8 %; NRBC Per 100 WBC 0.03 X 10*3/uL (0.00-0.01); Neutrophils # (A) 10.96 X 10*3/uL (1.80-7.70); Neutrophils % (A) 86.8 %; Platelet Count 338 X 10*3/uL (140-440); RBC 4.08 X 10*6/uL (4.40-5.60); RDW 16.5 % (11.5-14.5); WBC 12.63 X 10*3/uL (4.50-10.00)
[2024-09-27 10:14] LABS: ALT 17 U/L (10-49); AST 11 U/L (14-35); Albumin 3.2 g/dL (3.8-4.9); Albumin/Globulin Ratio 1.23 Ratio (1.60-3.17); Alkaline Phosphatase 90 U/L (41-126); Anion Gap 9.90 mmol/L (4.00-12.00); BUN/Creat Ratio 26.88 Ratio (12.00-20.00); Blood Urea Nitrogen 21.5 mg/dL (9.0-27.0); Calcium 8.9 mg/dL (8.7-10.3); Carbon Dioxide 25.1 mmol/L (21.6-31.8); Chloride 105 mmol/L (96-109); Globulin 2.6 g/dL (1.6-3.3); Glucose 175 mg/dL (70-110); Potassium 4.4 mmol/L (3.5-5.5); Sodium 140 mmol/L (135-145); Total Protein 5.8 g/dL (6.2-8.2)
--- NOTE | 2024-09-27 17:03 | P.PN ---
Subjective Progress Note Date: 09/27/24 patient 59-year-old gentleman with past medical history significant for COPD, cocaine abuse presented the ER for shortness of breath. Patient was sent in from [place] where he was following up for cocaine abuse, last use was 09/13. Patient said for the last couple of days he has been having shortness of breath. Shortness of breath was present on rest as well exertion. Patient also complaining of productive cough. There is no complaint of fever or chills. Patient denies any chest pain. Patient denies any palpitation. There is no complaint of orthopnea or PND. Denies any nausea, vomiting abdominal pain. Patient denies any complaint of dizziness. There is no complaint of headache. Because of the symptoms, patient came to the ER Initial lab work done in the ER showed creatinine 0.95, hemoglobin 9.1, platelet count 324, sodium 139, potassium 4, BUN 20, creatinine 0.78, glucose 97, cr eatinine 1.3, calcium 8.5, magnesium 1.9, bilirubin 0.4 troponin 0.012 Influenza A not detected Influenza B not detected RSV not detected COVID-19 not detected EKG done in the ER showed heart rate of77 , no ST segment elevation or depression seen, no T-wave inversions seen. Chest x-ray done in the ER showed no acute cardiopulmonary process Patient admitted to internal medicine service 09/27. Patient seen and examined. States breathing is improved. States cough is also improving states he feels much better. Discussed with him regarding Topamax, he states he does not want to take it anymore, will DC it REVIEW OF SYSTEMS: CONSTITUTIONAL: No fever, no malaise,. CARDIOVASCULAR: No chest pain, no palpitations, no syncope. PULMONARY: As mentioned above GASTROINTESTINAL: No diarrhea, no nausea, no vomiting, no abdominal pain. NEUROLOGICAL: No headaches, no weakness, PHYSICAL EXAMINATION: GENERAL: The patient is alert and oriented x3, not in any acute distress. Well developed, well nourished. HEENT: Pupils are round and equally reacting to light. EOMI. No scleral icterus. No conjunctival pallor. Normocephalic, atraumatic. No pharyngeal erythema. No thyromegaly. CARDIOVASCULAR: S1 and S2 present. No murmurs, rubs, or gallops. PULMONARY: Chest is clear to auscultation, no wheezing or crackles. ABDOMEN: Soft, nontender, nondistended, normoactive bowel sounds. No palpable o rganomegaly. MUSCULOSKELETAL: No joint swelling or deformity. EXTREMITIES: No cyanosis, clubbing, or pedal edema. NEUROLOGICAL: Gross neurological examination did not reveal any focal deficits. SKIN: No rashes. Assessment and plan Acute hypoxic respiratory failure Acute COPD exacerbation Hypertension History of cocaine abuse Monitor vital signs Monitor CBC Monitor CMP Continue telemetry monitoring Continue breathing treatment Continue IV Solu-Medrol Continue azithromycin Continue Symbicort Pulmonology consulted Labs and medication were reviewed.. Continue same treatment. Continue with symptomatic treatment. Resume home medication. Monitor labs and vitals. DVT and GI prophylaxis. Further recommendations as per clinical course of the patient Dictation was produced using [employer] dictation software. please excuse any grammatical, word or spelling errors. Objective - Vital Signs Vital signs: Vital Signs Temp 97.8 F 09/27/24 07:00 Pulse 74 09/27/24 11:26 Resp 19 09/27/24 07:00 BP 135/77 09/27/24 07:00 Pulse Ox 96 09/27/24 08:00 FiO2 5 09/26/24 16:33 Intake & Output 09/26/24 09/27/24 09/27/24 18:59 06:59 18:59 Weight 122.47 kg Other: Voiding Method Toilet Toilet # Voids 0 2 - Labs CBC & Chem 7: 09/27/24 03:46 09/27/24 03:46 Labs: Abnormal Lab Results - Last 24 Hours (Table) 09/27/24 09/27/24 Range/Units 03:46 03:46 WBC 12.63 H (4.50-10.00) X 10*3/uL RBC 4.08 L (4.40-5.60) X 10*6/uL Hgb 10.5 L (13.0-17.0) g/dL Hct 35.3 L (39.6-50.0) % MCH 25.7 L (27.0-32.0) pg MCHC 29.7 L (32.0-37.0) g/dL RDW 16.5 H (11.5-14.5) % MPV 9.4 L (9.5-12.2) FL Immature Gran # 0.13 H (0.00-0.04) X 10*3/uL Neutrophils # 10.96 H (1.80-7.70) X 10*3/uL Eosinophils # 0 L (0.04-0.35) X 10*3/uL NRBC/100 WBC Diff 0.03 H (0.00-0.01) X 10*3/uL BUN/Creatinine Ratio 26.88 H (12.00-20.00) Ratio Glucose 175 H (70-110) mg/dL Total Bilirubin <0.2 L (0.3-1.2) mg/dL AST 11 L (14-35) U/L Total Protein 5.8 L (6.2-8.2) g/dL Albumin 3.2 L (3.8-4.9) g/dL Albumin/Globulin Ratio 1.23 L (1.60-3.17) Ratio
--- NOTE | 2024-09-27 21:46 | P.CNPUL ---
History of Present Illness Consult date: 09/27/24 Reason for consult: dyspnea, COPD History of present illness: This is a 59-year-old -[place] male patient who was hospitalized for worsening shortness of breath and an acute [employer] exacerbation. The patient has known history of COPD and the patient has been followed up by Dr. Hernandez out of [facility]. The patient has been maintained on a combination of Advair and Spiriva on outpatient basis the patient has albuterol rescue Hailer on as- needed basis. He also states that he has a home CPAP therapy for underlying obstructive sleep apnea. He has chronic issues with crack cocaine smoking and the patient has been smoking for the past 25 years. He has been admitted to [facility] for rehabilitation. The patient during his stay at the rehab, became more short of breath, became bronchospastic and wheezy and he was hospitalized for an acute stroke exacerbation. No chest pain. No pleurisy or hemoptysis. No fever or chills. The viral screen has been negative. Electrolytes are normal. The white cell count of 12.9 with a hemoglobin 11.1 and a platelet count of 324. Normal coagulation profile. Normal electrolytes. Normal troponins. proBNP level is not elevated. Chest x-ray at the time of admission shows no acute cardiopulmonary process. He has had previous hospitalization for COPD exacerbation. He is EKG shows normal sinus rhythm. No acute ST segment changes. No leg edema. No orthopnea. He reports history of previous cardiac arrest related to cocaine overdose and this occurred many years back requiring prolonged hospitalization and the patient was given a tracheostomy to facilitate his long-term respiratory failure. The patient has a tracheostomy scar over the anterior neck and the patient suffers from chronic hoarseness. Comorbidities include obstructive sleep apnea and hypertension. He is currently on oxygen at room air with a pulse ox of 97%. He is maintained on bronchodilators. Is also on IV Solu-Medrol 60 mg every 6 hours. He was empirically started oral Zithromax 5 mg p.o. daily. He is also maintained on Symbicort. Review of Systems Constitutional: Denies chills, Denies fever Eyes: denies as per HPI, denies blurred vision, denies bulging eye, denies decreased vision, denies diplopia, denies discharge, denies dry eye, denies irritation, denies itching, denies pain, denies photophobia, denies loss of peripheral vision, denies loss of vision, denies tunnel vision/blind spots Ears, nose, mouth and throat: Reports as per HPI Breasts: absent: as per HPI, gynecomastia Cardiovascular: Reports decreased exercise tolerance, Reports dyspnea on exertion, Reports shortness of breath Respiratory: Reports cough, Reports dyspnea Gastrointestinal: Reports as per HPI Genitourinary: Reports as per HPI Musculoskeletal: Reports as per HPI Musculoskeletal: absent: ankle pain, ankle stiffness, ankle swelling, as per H PI, elbow pain, elbow stiffness, elbow swelling, foot pain, foot stiffness, foot swelling, hand pain, hand stiffness, hand swelling, hip pain, hip stiffness, hip swelling, knee pain, knee stiffness, knee swelling, shoulder pain, shoulder stiffness, shoulder swelling, wrist pain, wrist stiffness, wrist swelling Integumentary: Reports as per HPI Neurological: Reports as per HPI Endocrine: Reports as per HPI Hematologic/Lymphatic: Reports as per HPI Allergic/Immunologic: Reports as per HPI Past Medical History Past Medical History: COPD, Hypertension Additional Past Medical History / Comment(s): Intubation in the past with trach in 2016, previous cardiac arrest from cocaine. crack cocaine History of Any Multi-Drug Resistant Organisms: None Reported Additional Past Surgical History / Comment(s): Peg tube history-removed, trach- removed Past Psychological History: No Psychological Hx Reported Smoking Status: Current some day smoker Past Alcohol Use History: Occasional Past Drug Use History: Cocaine Medications and Allergies Home Medications Medication Instructions Recorded Confirmed Type Amoxic-Pot Clav 875-125Mg 1 tab PO Q12HR #20 tab 09/20/24 09/26/24 Rx [Augmentin 875-125] Albuterol Inhaler [Ventolin Hfa 1 puff INHALATION RT-QID PRN 09/26/24 09/26/24 History Inhaler] Albuterol Nebulized [Ventolin 2.5 mg INHALATION RT-Q4H PRN 09/26/24 09/26/24 History Nebulized] Atorvastatin [Lipitor] 40 mg PO HS 09/26/24 09/26/24 History Budesonide/Formoterol Fumarate 2 puff INHALATION RT-BID 09/26/24 09/26/24 History [Symbicort 160-4.5 Mcg Inhaler] Cetirizine HCl [Zyrtec] 10 mg PO DAILY 09/26/24 09/26/24 History FLUoxetine HCL [PROzac] 20 mg PO DAILY 09/26/24 09/26/24 History Ferrous Sulfate [Feosol] 325 mg PO DAILY 09/26/24 09/26/24 History Metoprolol Succinate (ER) [Toprol 25 mg PO DAILY 09/26/24 09/26/24 History Xl] Montelukast [Singulair] 10 mg PO HS 09/26/24 09/26/24 History Nystatin 100,000 Unit/ml Susp 5 ml PO QID 09/26/24 09/26/24 History [Mycostatin Oral Susp] Potassium Chloride [Klor-Con M20] 20 meq PO DAILY 09/26/24 09/26/24 History Tiotropium 2.5 Mcg/Puff [Spiriva 2 puff INHALATION RT-DAILY 09/26/24 09/26/24 History Respimat 2.5 Mcg] Topiramate [Topamax] 25 mg PO BID 09/26/24 09/26/24 History amLODIPine [Norvasc] 10 mg PO DAILY 09/26/24 09/26/24 History Allergies Allergy/AdvReac Type Severity Reaction Status Date / Time lisinopril Allergy Swelling Verified 09/26/24 09:33 Physical Exam Vitals: Vital Signs Temp Pulse Pulse Resp BP Pulse Ox FiO2 09/27/24 11:17 72 09/27/24 08:14 80 09/27/24 08:00 96 09/27/24 07:56 76 09/27/24 07:00 97.8 F 71 19 135/77 95 09/27/24 00:55 97.7 F 73 18 167/93 95 09/26/24 20:36 80 09/26/24 20:23 78 09/26/24 19:03 98.7 F 76 18 111/65 94 L 09/26/24 17:30 94 L 09/26/24 16:33 5 09/26/24 16:02 76 09/26/24 15:53 76 09/26/24 14:07 99.1 F 72 17 118/60 98 09/26/24 13:02 80 09/26/24 12:53 80 09/26/24 12:51 98 Intake and Output 09/26/24 09/27/24 09/27/24 22:59 06:59 14:59 Other: Voiding Method Toilet Toilet # Voids 0 2 The patient appeared well nourished and normally developed. Vital signs as documented. Obese, currently on room air oxygen with a BMI of 35.6 Head exam is unremarkable. No scleral icterus or corneal arcus noted. Neck is without jugular venous distension, thyromegaly, or carotid bruits. Carotid upstrokes are brisk bilaterally. Patient has a tracheostomy scar over the anterior neck. Lungs Diminished breath sounds along with scattered expiratory wheezes throughout the lung bridges bilaterally. Cardiac exam reveals the PMI to be normally sized and situated. Rhythm is regular. First and second heart sounds normal. No murmurs, rubs or gallops. Abdominal exam reveals normal bowel sounds, no masses, no organomegaly and no aortic enlargement. Extremities are nonedematous and both femoral and pedal pulses are normal. Examination of the skin revealed no evidence of significant rashes, suspicious appearing nevi or other concerning lesions. Neurologically, the patient is awake and alert and the patient does not have any focal neurological deficit. Cranial nerves are essentially intact. Results - Laboratory Findings CBC and BMP: 09/27/24 03:46 09/27/24 03:46 PT/INR, D-dimer PT 10.3 sec (10.0-12.5) 09/26/24 08:25 INR 0.9 (<1.2) 09/26/24 08:25 Abnormal lab findings: Abnormal Labs 09/26/24 09/26/24 09/26/24 08:25 08:25 08:25 WBC 12.95 H RBC 4.15 L Hgb 11.1 L Hct 35.6 L MCH 26.7 L MCHC 31.2 L RDW MPV 8.9 L Immature Gran # 0.07 H Neutrophils # 9.90 H Monocytes # 1.69 H Eosinophils # 0.02 L NRBC/100 WBC Diff APTT 21.8 L BUN/Creatinine Ratio Glucose Total Bilirubin AST Total Protein Albumin 3.2 L Albumin/Globulin Ratio 09/27/24 09/27/24 03:46 03:46 WBC 12.63 H RBC 4.08 L Hgb 10.5 L Hct 35.3 L MCH 25.7 L MCHC 29.7 L RDW 16.5 H MPV 9.4 L Immature Gran # 0.13 H Neutrophils # 10.96 H Monocytes # Eosinophils # 0 L NRBC/100 WBC Diff 0.03 H APTT BUN/Creatinine Ratio 26.88 H Glucose 175 H Total Bilirubin <0.2 L AST 11 L Total Protein 5.8 L Albumin 3.2 L Albumin/Globulin Ratio 1.23 L - Diagnostic Findings Chest x-ray: image reviewed Assessment and Plan Plan: Acute exacerbation of chronic COPD, normal chest x-ray, normal viral screen. No evidence of pneumonia. Acute on chronic shortness of breath secondary to above. No significant hypoxemia the patient is currently on room air oxygen Crack cocaine smoking, more than 20 years undergoing rehabilitation at [facility] Obstructive sleep apnea maintained on CPAP therapy on outpatient basis Obesity with a BMI of 35.6 Previous history of cardiac arrest related to cocaine intoxication/overdose requiring prolonged mechanical ventilation and tracheostomy tube insertion and subsequent removal to facilitate weaning Hyperlipidemia Chronic anxiety/depression Plan Agree on the current management. Patient is currently on room air oxygen. Continue bronchodilators. Continue IV Solu-Medrol. Pack antibiotic coverage with Zithromax. Resume home medications. Will treat his acute COPD extubation on the plan is to ultimately send the patient to [facility] back again to complete his substance rehabilitation attributed to crack cocaine. The patient is using one of our own CPAP and it is and the patient is currently on APAP mode. He is tolerating treatment reasonably well.
[2024-09-28 13:37] VITALS: BMI 35.6
--- NOTE | 2024-09-28 14:08 | P.PN ---
Subjective Progress Note Date: 09/28/24 patient 59-year-old gentleman with past medical history significant for COPD, cocaine abuse presented the ER for shortness of breath. Patient was sent in from [place] where he was following up for cocaine abuse, last use was 09/13. Patient said for the last couple of days he has been having shortness of breath. Shortness of breath was present on rest as well exertion. Patient also complaining of productive cough. There is no complaint of fever or chills. Patient denies any chest pain. Patient denies any palpitation. There is no complaint of orthopnea or PND. Denies any nausea, vomiting abdominal pain. Patient denies any complaint of dizziness. There is no complaint of headache. Because of the symptoms, patient came to the ER Initial lab work done in the ER showed creatinine 0.95, hemoglobin 9.1, platelet count 324, sodium 139, potassium 4, BUN 20, creatinine 0.78, glucose 97, cr eatinine 1.3, calcium 8.5, magnesium 1.9, bilirubin 0.4 troponin 0.012 Influenza A not detected Influenza B not detected RSV not detected COVID-19 not detected EKG done in the ER showed heart rate of77 , no ST segment elevation or depression seen, no T-wave inversions seen. Chest x-ray done in the ER showed no acute cardiopulmonary process Patient admitted to internal medicine service 09/27. Patient seen and examined. States breathing is improved. States cough is also improving states he feels much better. Discussed with him regarding Topamax, he states he does not want to take it anymore, will DC it 09/28. Patient seen examined. No acute issues overnight. Breathing continues to improve. REVIEW OF SYSTEMS: CONSTITUTIONAL: No fever, no malaise,. CARDIOVASCULAR: No chest pain, no palpitations, no syncope. PULMONARY: As mentioned above GASTROINTESTINAL: No diarrhea, no nausea, no vomiting, no abdominal pain. NEUROLOGICAL: No headaches, no weakness, PHYSICAL EXAMINATION: GENERAL: The patient is alert and oriented x3, not in any acute distress. Well developed, well nourished. HEENT: Pupils are round and equally reacting to light. EOMI. No scleral icterus. No conjunctival pallor. Normocephalic, atraumatic. No pharyngeal erythema. No thyromegaly. CARDIOVASCULAR: S1 and S2 present. No murmurs, rubs, or gallops. PULMONARY: Chest is clear to auscultation, no wheezing or crackles. ABDOMEN: Soft, nontender, nondistended, normoactive bowel sounds. No palpable organomegaly. MUSCULOSKELETAL: No joint swelling or deformity. EXTREMITIES: No cyanosis, clubbing, or pedal edema. NEUROLOGICAL: Gross neurological examination did not reveal any focal deficits. SKIN: No rashes. Assessment and plan Acute hypoxic respiratory failure Acute COPD exacerbation Hypertension History of cocaine abuse Monitor vital signs Monitor CBC Monitor CMP Continue telemetry monitoring Continue breathing treatment Continue IV Solu-Medrol Continue azithromycin Continue Symbicort Pulmonology consulted, recommendations noted from 09/28 Labs and medication were reviewed.. Continue same treatment. Continue with symptomatic treatment. Resume home medication. Monitor labs and vitals. DVT and GI prophylaxis. Further recommendations as per clinical course of the patient Dictation was produced using [employer] dictation software. please excuse any grammatical, word or spelling errors. Objective - Vital Signs Vital signs: Vital Signs Temp 98.1 F 09/28/24 07:33 Pulse 60 09/28/24 10:25 Resp 18 09/28/24 07:33 BP 129/63 09/28/24 07:33 Pulse Ox 94 L 09/28/24 10:12 FiO2 5 09/26/24 16:33 Intake & Output 09/27/24 09/28/24 09/28/24 18:59 06:59 18:59 Other: Voiding Method Toilet Toilet # Voids 6 2 # Bowel Movements 2 - Labs CBC & Chem 7: 09/27/24 03:46 09/27/24 03:46 Labs: Microbiology - Last 24 Hours (Table) 09/26/24 08:22 Blood Culture - Preliminary Blood
--- NOTE | 2024-09-28 14:11 | P.PN ---
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 The patient has known history of COPD and the patient has been followed up by Dr. Hernandez out of [facility]. The patient has been maintained on a combination of Advair and Spiriva on outpatient basis the patient has albuterol rescue Hailer on as- needed basis. He also states that he has a home CPAP therapy for underlying obstructive sleep apnea. He has chronic issues with crack cocaine smoking and the patient has been smoking for the past 25 years. He has been admitted to [facility] for rehabilitation. The patient during his stay at the rehab, became more short of breath, became bronchospastic and wheezy and he was hospitalized for an acute stroke exacerbation. No chest pain. No pleurisy or hemoptysis. No fever or chills. The viral screen has been negative. Electrolytes are normal. The white cell count of 12.9 with a hemoglobin 11.1 and a platelet count of 324. Normal coagulation profile. Normal electrolytes. Normal troponins. proBNP level is not elevated. Chest x-ray at the time of admission shows no acute cardiopulmonary process. He has had previous hospitalization for COPD exacerbation. He is EKG shows normal sinus rhythm. No acute ST segment changes. No leg edema. No orthopnea. He reports history of previous cardiac arrest related to cocaine overdose and this occurred many years back requiring prolonged hospitalization and the patient was given a tracheostomy to facilitate his long-term respiratory failure. The patient has a tracheostomy scar over the anterior neck and the patient suffers from chronic hoarseness. Comorbidities include obstructive sleep apnea and hypertension. He is currently on oxygen at room air with a pulse ox of 97%. He is maintained on bronchodilators. Is also on IV Solu-Medrol 60 mg every 6 hours. He was empirically started oral Zithromax 5 mg p.o. daily. He is also maintained on Symbicort. The patient is seen today September 28, 2024 in follow-up on the regular medical floor. He is up ambulating in his room. Awake and alert in no acute distress. Still with some dry nonproductive cough. He is maintaining O2 saturations in the 90s on room air suction. He is afebrile. Hemodynamically stable. Blood culture reveals no growth. White count 12.6. Hemoglobin 10.5. Platelets 338. Sodium 140. Potassium 4.4. Bicarb 25. BUN 22. Creatinine 0.8. Glucose 175. He remains on DuoNeb inhalations, Symbicort, Solu-Medrol and Singulair. Objective - Vital Signs Vital signs: Vital Signs Temp 98.1 F 09/28/24 07:33 Pulse 64 09/28/24 13:25 Resp 18 09/28/24 07:33 BP 129/63 09/28/24 07:33 Pulse Ox 94 L 09/28/24 10:12 FiO2 5 09/26/24 16:33 Intake & Output 09/27/24 09/28/24 09/28/24 18:59 06:59 18:59 Weight 122.47 kg Other: Voiding Method Toilet Toilet # Voids 6 2 # Bowel Movements 2 - Exam GENERAL EXAM: Alert, active, 59-year-old male, on room air oxygen, comfortable in no apparent distress. HEAD: Normocephalic. EYES: Normal reaction of pupils, equal size. NOSE: Clear with pink turbinates. THROAT: No erythema or exudates. NECK: No masses, no JVD. CHEST: No chest wall deformity. LUNGS: Equal air entry with end expiratory wheeze. CVS: S1 and S2 normal with no audible murmur, regular rhythm. ABDOMEN: No hepatosplenomegaly, normal bowel sounds, no guarding or rigidity. SPINE: No scoliosis or deformity SKIN: No rashes CENTRAL NERVOUS SYSTEM: No focal deficits, tone is normal in all 4 extremities. EXTREMITIES: There is no peripheral edema. No clubbing, no cyanosis. Peripheral pulses are intact. - Labs CBC & Chem 7: 09/27/24 03:46 09/27/24 03:46 Labs: Microbiology - Last 24 Hours (Table) 09/26/24 08:22 Blood Culture - Preliminary Blood Assessment and Plan Assessment: Acute exacerbation of chronic COPD, normal chest x-ray, normal viral screen. No evidence of pneumonia. Acute on chronic shortness of breath secondary to above. No significant hypoxemia the patient is currently on room air oxygen Crack cocaine smoking, more than 20 years undergoing rehabilitation at [facility] Obstructive sleep apnea maintained on CPAP therapy on outpatient basis Obesity with a BMI of 35.6 Previous history of cardiac arrest related to cocaine intoxication/overdose requiring prolonged mechanical ventilation and tracheostomy tube insertion and subsequent removal to facilitate weaning Hyperlipidemia Chronic anxiety/depression Plan: The patient was seen and evaluated Labs and medications reviewed Stable and on room air oxygen Continue Symbicort Continue Solu-Medrol Continue Singulair Continue DuoNeb and elations Probable discharge in the a.m. Plan discussed with the patient May return to [facility] for continued rehabilitation I have personally seen and examined the patient, performed the documentation and the assessment and plan as written. Number of minutes spent on the visit: 10 Dictation was produced using [employer] dictation software. Please excuse any gramm atical, word or spelling errors.
[2024-09-29 08:49] LABS: Basophils # (A) 0.02 10*3/uL (0.00-0.10); Basophils % (A) 0.1 %; Eosinophils # (A) 0.00 10*3/uL (0.04-0.35); Eosinophils % (A) 0.0 %; HCT 32.8 % (39.6-50.0); HGB 10.3 g/dL (13.0-17.0); Lymphocytes # (A) 0.61 10*3/uL (0.90-5.00); Lymphocytes % (A) 3.8 %; MCH 26.6 pg (27.0-32.0); MCHC 31.4 g/dL (32.0-37.0); MCV 84.8 fL (80.0-97.0); Monocytes # (A) 0.27 10*3/uL (0.20-1.00); Monocytes % (A) 1.7 %; Neutrophils # (A) 14.88 10*3/uL (1.80-7.70); Neutrophils % (A) 92.8 %; Platelet Count 392 10*3/uL (140-440); RBC 3.87 10*6/uL (4.40-5.60); RDW 16.7 % (11.5-14.5); WBC 16.03 10*3/uL (4.50-10.00)
[2024-09-29 09:04] LABS: ALT 20 U/L (4-49); AST 20 U/L (17-59); African American GFR (CKD) >90 (>60 ml/min/1.73 sqM); Albumin 3.1 g/dL (3.5-5.0); Albumin/Globulin Ratio 1.1; Alkaline Phosphatase 124 U/L (38-126); Anion Gap 8 mmol/L; Blood Urea Nitrogen 28 mg/dL (9-20); Calcium 8.8 mg/dL (8.4-10.2); Carbon Dioxide 27 mmol/L (22-30); Chloride 103 mmol/L (98-107); Globulin 2.9 g/dL; Glucose 295 mg/dL (74-99); Non-African American GFR(CKD) >90 (>60 ml/min/1.73 sqM); Potassium 4.4 mmol/L (3.5-5.1); Sodium 138 mmol/L (137-145); Total Protein 6.0 g/dL (6.3-8.2)
--- NOTE | 2024-09-29 09:48 | XR ---
EXAMINATION TYPE: XR chest 1V portable DATE OF EXAM: 09/29/2024 9:35 AM COMPARISON: 09/26/2024 CLINICAL INDICATION: Male, 59 years old with history of COPD Exacerbation, TECHNIQUE: XR chest 1V portable views of the chest are obtained. FINDINGS: Demonstrated are scattered senescent parenchymal change. There is no evidence for focal infiltrate. The heart is stable. Hilar and mediastinal structures are within normal limits. Degenerative changes are seen of the dorsal spine. IMPRESSION: 1. Chronic changes without evidence for acute pulmonary disease. [facility], , 09/29/2024 9:46 AM
--- NOTE | 2024-09-29 11:19 | P.PN ---
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 The patient has known history of COPD and the patient has been followed up by Dr. Hernandez out of [facility]. The patient has been maintained on a combination of Advair and Spiriva on outpatient basis the patient has albuterol rescue Hailer on as- needed basis. He also states that he has a home CPAP therapy for underlying obstructive sleep apnea. He has chronic issues with crack cocaine smoking and the patient has been smoking for the past 25 years. He has been admitted to [facility] for rehabilitation. The patient during his stay at the rehab, became more short of breath, became bronchospastic and wheezy and he was hospitalized for an acute stroke exacerbation. No chest pain. No pleurisy or hemoptysis. No fever or chills. The viral screen has been negative. Electrolytes are normal. The white cell count of 12.9 with a hemoglobin 11.1 and a platelet count of 324. Normal coagulation profile. Normal electrolytes. Normal troponins. proBNP level is not elevated. Chest x-ray at the time of admission shows no acute cardiopulmonary process. He has had previous hospitalization for COPD exacerbation. He is EKG shows normal sinus rhythm. No acute ST segment changes. No leg edema. No orthopnea. He reports history of previous cardiac arrest related to cocaine overdose and this occurred many years back requiring prolonged hospitalization and the patient was given a tracheostomy to facilitate his long-term respiratory failure. The patient has a tracheostomy scar over the anterior neck and the patient suffers from chronic hoarseness. Comorbidities include obstructive sleep apnea and hypertension. He is currently on oxygen at room air with a pulse ox of 97%. He is maintained on bronchodilators. Is also on IV Solu-Medrol 60 mg every 6 hours. He was empirically started oral Zithromax 5 mg p.o. daily. He is also maintained on Symbicort. The patient is seen today September 28, 2024 in follow-up on the regular medical floor. He is up ambulating in his room. Awake and alert in no acute distress. Still with some dry nonproductive cough. He is maintaining O2 saturations in the 90s on room air suction. He is afebrile. Hemodynamically stable. Blood culture reveals no growth. White count 12.6. Hemoglobin 10.5. Platelets 338. Sodium 140. Potassium 4.4. Bicarb 25. BUN 22. Creatinine 0.8. Glucose 175. He remains on DuoNeb inhalations, Symbicort, Solu-Medrol and Singulair. The patient is seen today September 29, 2024 in follow-up on the regular medical floor. He is currently resting in bed. Awake and alert in no acute distress. Denies any worsening shortness of breath, cough or congestion. Continues to ma intain good O2 saturations in the 90s on room air oxygen. White count 16.0. Hemoglobin 10.3. Platelets 392. Sodium 138. Potassium 4.4. Bicarb 27. BUN 28. Creatinine 0.8. Glucose 295. He remains on DuoNeb and elations, Symbicort, Solu-Medrol. Objective - Vital Signs Vital signs: Vital Signs Temp 98.1 F 09/29/24 07:29 Pulse 56 L 09/29/24 08:34 Resp 14 09/29/24 07:29 BP 123/70 09/29/24 07:29 Pulse Ox 96 09/29/24 07:29 FiO2 5 09/26/24 16:33 Intake & Output 09/28/24 09/29/24 09/29/24 18:59 06:59 18:59 Intake Total 240 Balance 240 Weight 122.47 kg Intake: Oral 240 Other: Voiding Method Toilet # Voids 3 1 - Exam GENERAL EXAM: Alert, 59-year-old male, resting in bed, on room air oxygen, in no apparent distress. HEAD: Normocephalic. EYES: Normal reaction of pupils, equal size. NOSE: Clear with pink turbinates. THROAT: No erythema or exudates. NECK: No masses, no JVD. CHEST: No chest wall deformity. LUNGS: Equal air entry with end expiratory wheeze. CVS: S1 and S2 normal with no audible murmur, regular rhythm. ABDOMEN: No hepatosplenomegaly, normal bowel sounds, no guarding or rigidity. SPINE: No scoliosis or deformity SKIN: No rashes CENTRAL NERVOUS SYSTEM: No focal deficits, tone is normal in all 4 extremities. EXTREMITIES: There is no peripheral edema. No clubbing, no cyanosis. Peripheral pulses are intact. - Labs CBC & Chem 7: 09/29/24 08:39 09/29/24 08:39 Labs: Abnormal Lab Results - Last 24 Hours (Table) 09/29/24 09/29/24 Range/Units 08:39 08:39 WBC 16.03 H (4.50-10.00) 10*3/uL RBC 3.87 L (4.40-5.60) 10*6/uL Hgb 10.3 L (13.0-17.0) g/dL Hct 32.8 L (39.6-50.0) % MCH 26.6 L (27.0-32.0) pg MCHC 31.4 L (32.0-37.0) g/dL RDW 16.7 H (11.5-14.5) % MPV 9.3 L (9.5-12.2) fL Immature Gran # 0.25 H (0.00-0.04) 10*3/uL Neutrophils # 14.88 H (1.80-7.70) 10*3/uL Lymphocytes # 0.61 L (0.90-5.00) 10*3/uL Eosinophils # 0.00 L (0.04-0.35) 10*3/uL BUN 28 H (9-20) mg/dL Glucose 295 H (74-99) mg/dL Total Protein 6.0 L (6.3-8.2) g/dL Albumin 3.1 L (3.5-5.0) g/dL Microbiology - Last 24 Hours (Table) 09/26/24 08:22 Blood Culture - Preliminary Blood Assessment and Plan Assessment: Acute exacerbation of chronic COPD, normal chest x-ray, normal viral screen. No evidence of pneumonia. Acute on chronic shortness of breath secondary to above. No significant hypoxemia the patient is currently on room air oxygen Crack cocaine smoking, more than 20 years undergoing rehabilitation at [facility] Obstructive sleep apnea maintained on CPAP therapy on outpatient basis Obesity with a BMI of 35.6 Previous history of cardiac arrest related to cocaine intoxication/overdose requiring prolonged mechanical ventilation and tracheostomy tube insertion and subsequent removal to facilitate weaning Hyperlipidemia Chronic anxiety/depression Plan: The patient was seen and evaluated Labs and medications reviewed Stable and on room air oxygen Cleared for discharge Continue his home Symbicort, Spiriva Continue his home albuterol HFA Complete a prednisone taper 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 Number of minutes spent on the visit: 10 Dictation was produced using [employer] dictation software. Please excuse any grammatical, word or spelling errors.
[2024-09-30 02:48] VITALS: TEMP 98
[2024-09-30 07:44] VITALS: BP 158/90; RESP 20
[2024-09-30] MEDS: predniSONE 20 MG TAB PO SCH (09:03)
--- NOTE | 2024-09-30 13:14 | P.DS ---
Providers Date of admission: 09/26/24 09:39 Attending physician: Manoj Quintana Consults: 09/26/24 11:53 Consult Physician Routine Consulting Provider: Erika Perez Consult Reason/Comments: COPD exacerbation Do you want consulting provider notified?: Yes Primary care physician: Benedict Medrano, DO Hospital Course: Hospital Course: Discharge Diagnosis: Assessment and plan Acute hypoxic respiratory failure Acute COPD exacerbation Hypertension History of cocaine abuse Hospital Course: History of present illness; patient 59-year-old gentleman with past medical history significant for COPD, cocaine abuse presented the ER for shortness of breath. Patient was sent in from [place] where he was following up for cocaine abuse, last use was 09/13. Patient said for the last couple of days he has been having shortness of breath. Shortness of breath was present on rest as well exertion. Patient also complaining of productive cough. There is no complaint of fever or chills. Patient denies any chest pain. Patient denies any palpitation. There is no complaint of orthopnea or PND. Denies any nausea, vomiting abdominal pain. Patient denies any complaint of dizziness. There is no complaint of headache. Because of the symptoms, patient came to the ER Initial lab work done in the ER showed creatinine 0.95, hemoglobin 9.1, platelet count 324, sodium 139, potassium 4, BUN 20, creatinine 0.78, glucose 97, creatinine 1.3, calcium 8.5, magnesium 1.9, bilirubin 0.4 troponin 0.012 Influenza A not detected Influenza B not detected RSV not detected COVID-19 not detected EKG done in the ER showed heart rate of77 , no ST segment elevation or depression seen, no T-wave inversions seen. Chest x-ray done in the ER showed no acute cardiopulmonary process Patient admitted to internal medicine service While admitted the patient was seen by pulmonology, in concordance with medicine team he was treated with bronchodialators, IV solumedrol, and antibiotics for concern for pneumonia. He is currently on room air tolerating exertion without oxygen supplamentaiton. He was perscribed a prednisone taper and was perscribed refills for home medication to ensure adherence. While admitted, he has scheduled followup with his PCP in 2 weeks while awaiting discharge. He is being discharged home rather than back to [facility] at the patients request. He feels back to baseline and ready to be discharged. Pt seen and examined at bedside: Vital signs reveiwed and stable: General: non toxic, no distress, appears at stated age, normal weight Derm: no unusual rashes/lesions, warm Head: atraumatic, normocephalic, symmetric Eyes: EOMI, no lid lag, anicteric sclera, pupils equal round reactive to light ENT: Nose and ears atraumatic Neck: No cervical lymphadenopathy, trachea midline, supple Mouth: no lip lesion, mucus membranes moist Cardiovascular: S1S2 reg, no murmur, positive dorsalis pedis pulse bilateral, no edema Lungs: Decreased air entry bilaterally, no rhonchi, no rales, no accessory muscle use Abdominal: soft, nontender to palpation, no guarding Ext: muscle strength 5 out of 5 in all 4 extremities grossly, no gross muscle atrophy, no contractures, Neuro: CN II-XI grossly intact, no gross focal neuro deficits Psych: Alert, oriented, appropriate affect A total of greater than 30 minutes were spent preparing this complex discarge summary. Attestation I have seen and examined this patient with my resident , discussed the same with the resident/MOSES, and agree with the dictator's assessment and plan as written Dr. Antonio dawson Patient Condition at Discharge: Stable Plan - Discharge Summary Discharge Rx Participant: Yes New Discharge Prescriptions: New Albuterol Nebulized [Ventolin Nebulized] 2.5 mg INHALATION Q6H 6 Days #75 ml Tiotropium 2.5 Mcg/Puff [Spiriva Respimat 2.5 Mcg] 1 puff INHALATION DAILY 30 Days #1 each Montelukast [Singulair] 10 mg PO HS 30 Days #30 tab predniSONE 10 mg PO DAILY 8 Days #20 tab Budesonide-Formot 160-4.5 Mcg [Symbicort 160-4.5 Mcg Inhaler] 2 puff INHALATION RT-BID 30 Days #1 each Albuterol Inhaler [Ventolin Hfa Inhaler] 2 puff INHALATION Q6H PRN #0 each PRN Reason: Shortness Of Breath Or Wheezing Continue Potassium Chloride [Klor-Con M20] 20 meq PO DAILY Metoprolol Succinate (ER) [Toprol XL] 25 mg PO DAILY Nystatin 100,000 Unit/ml Susp [Mycostatin Oral Susp] 5 ml PO QID #1 amLODIPine [Norvasc] 10 mg PO DAILY FLUoxetine HCL [PROzac] 20 mg PO DAILY Atorvastatin [Lipitor] 40 mg PO HS Changed Cetirizine HCl [Zyrtec] 10 mg PO DAILY PRN 30 Days #1 PRN Reason: Nasal Congestion Discontinued Amoxic-Pot Clav 875-125Mg [Augmentin 875-125] 1 tab PO Q12HR #20 tab Budesonide/Formoterol Fumarate [Symbicort 160-4.5 Mcg Inhaler] 2 puff INHALATION RT-BID Topiramate [Topamax] 25 mg PO BID Albuterol Inhaler [Ventolin Hfa Inhaler] 1 puff INHALATION RT-QID PRN PRN Reason: Shortness Of Breath Montelukast [Singulair] 10 mg PO HS Ferrous Sulfate [Feosol] 325 mg PO DAILY Albuterol Nebulized [Ventolin Nebulized] 2.5 mg INHALATION RT-Q4H PRN PRN Reason: Shortness Of Breath Tiotropium 2.5 Mcg/Puff [Spiriva Respimat 2.5 Mcg] 2 puff INHALATION RT-DAILY Discharge Medication List Atorvastatin [Lipitor] 40 mg PO HS 09/26/24 [History] FLUoxetine HCL [PROzac] 20 mg PO DAILY 09/26/24 [History] Metoprolol Succinate (ER) [Toprol XL] 25 mg PO DAILY 09/26/24 [History] Potassium Chloride [Klor-Con M20] 20 meq PO DAILY 09/26/24 [History] amLODIPine [Norvasc] 10 mg PO DAILY 09/26/24 [History] Albuterol Inhaler [Ventolin Hfa Inhaler] 2 puff INHALATION Q6H PRN #0 each 09/30/24 [Rx] Albuterol Nebulized [Ventolin Nebulized] 2.5 mg INHALATION Q6H 6 Days #75 ml 09/30/24 [Rx] Budesonide-Formot 160-4.5 Mcg [Symbicort 160-4.5 Mcg Inhaler] 2 puff INHALATION RT-BID 30 Days #1 each 09/30/24 [Rx] Cetirizine HCl [Zyrtec] 10 mg PO DAILY PRN 30 Days #1 09/30/24 [Rx] Montelukast [Singulair] 10 mg PO HS 30 Days #30 tab 09/30/24 [Rx] Nystatin 100,000 Unit/ml Susp [Mycostatin Oral Susp] 5 ml PO QID #1 09/30/24 [Rx] Tiotropium 2.5 Mcg/Puff [Spiriva Respimat 2.5 Mcg] 1 puff INHALATION DAILY 30 Days #1 each 09/30/24 [Rx] predniSONE 10 mg PO DAILY 8 Days #20 tab 09/30/24 [Rx] Follow up Appointment(s)/Referral(s): Benedict Medrano DO [Primary Care Provider] - 1-2 days (office not answering please call to schedule appointment ) Patient Instructions/Handouts: COPD (Chronic Obstructive Pulmonary Disease) (DC) Discharge Disposition: HOME SELF-CARE
--- NOTE | 2024-09-30 13:24 | P.PN ---
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 The patient has known history of COPD and the patient has been followed up by Dr. Hernandez out of [facility]. The patient has been maintained on a combination of Advair and Spiriva on outpatient basis the patient has albuterol rescue Hailer on as- needed basis. He also states that he has a home CPAP therapy for underlying obstructive sleep apnea. He has chronic issues with crack cocaine smoking and the patient has been smoking for the past 25 years. He has been admitted to [facility] for rehabilitation. The patient during his stay at the rehab, became more short of breath, became bronchospastic and wheezy and he was hospitalized for an acute stroke exacerbation. No chest pain. No pleurisy or hemoptysis. No fever or chills. The viral screen has been negative. Electrolytes are normal. The white cell count of 12.9 with a hemoglobin 11.1 and a platelet count of 324. Normal coagulation profile. Normal electrolytes. Normal troponins. proBNP level is not elevated. Chest x-ray at the time of admission shows no acute cardiopulmonary process. He has had previous hospitalization for COPD exacerbation. He is EKG shows normal sinus rhythm. No acute ST segment changes. No leg edema. No orthopnea. He reports history of previous cardiac arrest related to cocaine overdose and this occurred many years back requiring prolonged hospitalization and the patient was given a tracheostomy to facilitate his long-term respiratory failure. The patient has a tracheostomy scar over the anterior neck and the patient suffers from chronic hoarseness. Comorbidities include obstructive sleep apnea and hypertension. He is currently on oxygen at room air with a pulse ox of 97%. He is maintained on bronchodilators. Is also on IV Solu-Medrol 60 mg every 6 hours. He was empirically started oral Zithromax 5 mg p.o. daily. He is also maintained on Symbicort. The patient is seen today September 28, 2024 in follow-up on the regular medical floor. He is up ambulating in his room. Awake and alert in no acute distress. Still with some dry nonproductive cough. He is maintaining O2 saturations in the 90s on room air suction. He is afebrile. Hemodynamically stable. Blood culture reveals no growth. White count 12.6. Hemoglobin 10.5. Platelets 338. Sodium 140. Potassium 4.4. Bicarb 25. BUN 22. Creatinine 0.8. Glucose 175. He remains on DuoNeb inhalations, Symbicort, Solu-Medrol and Singulair. The patient is seen today September 29, 2024 in follow-up on the regular medical floor. He is currently resting in bed. Awake and alert in no acute distress. Denies any worsening shortness of breath, cough or congestion. Continues to ma intain good O2 saturations in the 90s on room air oxygen. White count 16.0. Hemoglobin 10.3. Platelets 392. Sodium 138. Potassium 4.4. Bicarb 27. BUN 28. Creatinine 0.8. Glucose 295. He remains on DuoNeb and elations, Symbicort, Solu-Medrol. The patient is seen today September 30, 2024 in follow-up on the regular medical floor. He is currently sitting up at the bedside. Awake and alert in no acute distress. He denies any worsening shortness of breath, cough or congestion. No hemoptysis. Maintaining good O2 saturations in the 90s on room air oxygen. He has been afebrile. Hemodynamically stable. Blood culture revealed no growth. No new labs today. He is continued on DuoNeb inhalations, Symbicort, Singulair, prednisone taper. Objective - Vital Signs Vital signs: Vital Signs Temp 98.0 F 09/30/24 01:04 Pulse 72 09/30/24 13:12 Resp 20 09/30/24 07:43 BP 158/90 09/30/24 07:43 Pulse Ox 92 L 09/30/24 07:43 FiO2 5 09/26/24 16:33 Intake & Output 09/29/24 09/30/24 09/30/24 18:59 06:59 18:59 Intake Total 240 Balance 240 Intake: Oral 240 Other: Voiding Method Toilet # Voids 3 3 # Bowel Movements 2 1 - Exam GENERAL EXAM: Alert, oriented 59-year-old male, sitting up at the bedside, on room air oxygen, in no apparent distress. HEAD: Normocephalic. EYES: Normal reaction of pupils, equal size. NOSE: Clear with pink turbinates. THROAT: No erythema or exudates. NECK: No masses, no JVD. CHEST: No chest wall deformity. LUNGS: Equal air entry with no wheeze, rhonchi or dullness. Diminished. CVS: S1 and S2 normal with no audible murmur, regular rhythm. ABDOMEN: No hepatosplenomegaly, normal bowel sounds, no guarding or rigidity. SPINE: No scoliosis or deformity SKIN: No rashes CENTRAL NERVOUS SYSTEM: No focal deficits, tone is normal in all 4 extremities. EXTREMITIES: There is no peripheral edema. No clubbing, no cyanosis. Peripheral pulses are intact. - Labs CBC & Chem 7: 09/29/24 08:39 09/29/24 08:39 Labs: Microbiology - Last 24 Hours (Table) 09/26/24 08:22 Blood Culture - Preliminary Blood Assessment and Plan Assessment: Acute exacerbation of chronic COPD, normal chest x-ray, normal viral screen. No evidence of pneumonia. Acute on chronic shortness of breath secondary to above. No significant hypoxemia the patient is currently on room air oxygen Crack cocaine smoking, more than 20 years undergoing rehabilitation at [facility] Obstructive sleep apnea maintained on CPAP therapy on outpatient basis Obesity with a BMI of 35.6 Previous history of cardiac arrest related to cocaine intoxication/overdose requiring prolonged mechanical ventilation and tracheostomy tube insertion and subsequent removal to facilitate weaning Hyperlipidemia Chronic anxiety/depression Plan: The patient was seen and evaluated Medications reviewed Cleared for discharge Continue his home Symbicort, Spiriva Continue his home albuterol HFA Complete a prednisone taper Plan is to return home instead of [facility] 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 Number of minutes spent on the visit: 24 Dictation was produced using [employer] software. Please excuse any grammatical, word or spelling errors.
[2024-09-30 17:02] VITALS: PULSE 60
== END 2024-09-30 17:01 | disposition home or self-care (01) ==
LOC: EC 07:55 → 4SSUR 09:39
PROVIDERS: ADMIT Hospitalist; ATTEND Hospitalist
DX: J44.1 Chronic obstructive pulmonary disease with (acute) exacerbation (principal); J96.01 Acute respiratory failure with hypoxia; G47.33 Obstructive sleep apnea (adult) (pediatric); I10 Essential (primary) hypertension; F14.10 Cocaine abuse, uncomplicated; E66.9 Obesity, unspecified; E78.5 Hyperlipidemia, unspecified; F17.200 Nicotine dependence, unspecified, uncomplicated; F32.A Depression, unspecified; F41.9 Anxiety disorder, unspecified; Z68.35 Body mass index [BMI] 35.0-35.9, adult; Z79.51 Long term (current) use of inhaled steroids; Z79.899 Other long term (current) drug therapy; Z86.74 Personal history of sudden cardiac arrest; Z88.8 Allergy status to other drugs, medicaments and biological substances; Z79.2 Long term (current) use of antibiotics; Z79.52 Long term (current) use of systemic steroids
CPT/HCPCS: 96376 ×4; 96374; 99291; 36415; 94660 ×2; 94640 ×10; 94760 ×3; 93005; 83880; 80053 ×3; 83605; 83735; 84484; 85025 ×3; 85610; 85730; 87040; 87636; 71045; 71046; G0378 ×5; J7512; J2919 ×4